=== PATIENT | male | born 1950 | race African-American/Black ===

== ENCOUNTER 2019-11-11 14:24 | Observation (INO) ==
[2019-11-11 14:57] LABS: Basophils # 0.1 10*3/uL (0.0-0.2); Basophils % 0.6 % (0.0-0.8); Eosinophils # 0.2 10*3/uL (0.0-0.87); Hematocrit 52.8 VOL% (42.0-52.0); Hemoglobin 17.1 GM/DL (14.0-18.0); Immature Granulocytes % 0.5 %; Immature Granulocytes Absolute 0.05 #; Lymphocytes # 0.9 10*3/uL (1.4-4.0); Lymphocytes % 8.7 % (21.2-54.2); Mean Corpuscular HGB Conc 32.4 GM/DL (32-36); Mean Corpuscular Volume 90.1 FL (87-102); Mean Platelet Volume 10.5 FL (9.6-12.0); Neutrophils % 81.2 % (38.7-73.9); Platelet Count 229 T/CUMM (130-400); Red Blood Count 5.86 MC/CUMM (3.8-5.5); Red Cell Distribution Width 13.2 % (9.3-17.3); White Blood Count 10.6 T/CUMM (4-12)
[2019-11-11 15:05] LABS: PT Patient Result 10.7 SECS (9.8-11.9)
[2019-11-11 15:18] LABS: Alanine Aminotransferase 17 U/L (16-61); Albumin 3.8 G/DL (3.4-5.0); Alkaline Phosphatase 87 U/L (45-117); Aspartate Amino Transferase 11 U/L (0-37); Bilirubin,Total < 0.39 MG/DL (0.2-1.0); Blood Urea Nitrogen 17 MG/DL (7-18); Calcium 8.9 MG/DL (8.5-10.1); Estimated Glom Filtration Rate 80 ML/MIN; Glucose 107 MG/DL (74-106); Osmolality,Calculated 276.7 MOS/KG (273-304); Total Protein 7.6 G/DL (6.4-8.3)
[2019-11-11] MEDS ORDERED: cefTRIAXone 1,000 MG in SODIUM CHLORIDE 0.9% 100 ML IV STA (15:23)
[2019-11-11] MEDS ORDERED: AZITHROMYCIN INJ 500 MG in SODIUM CHLORIDE 0.9% 250 ML IV STA (15:23)
[2019-11-11] MEDS ORDERED: DEXTROSE 50% 25 GM/50 ML VIAL IV PRN (16:19)
[2019-11-11] MEDS ORDERED: ACETAMINOPHEN 325 MG TABLET PO PRN (16:19)
[2019-11-11] MEDS ORDERED: ONDANSETRON 4 MG/2 ML VIAL IV PRN (16:19)
[2019-11-11] MEDS ORDERED: GLUCAGON 1 MG VIAL IM PRN (16:19)
[2019-11-11] MEDS ORDERED: DOCUSATE SODIUM 100 MG CAPSULE PO PRN (16:19)
[2019-11-11] MEDS ORDERED: hydrALAZINE 20 MG/1 ML VIAL IV PRN (16:19)
[2019-11-11] MEDS ORDERED: AZITHROMYCIN INJ 250 MG in SODIUM CHLORIDE 0.9% 250 ML IV SCH (16:30)
[2019-11-11] MEDS ORDERED: RACEPINEPHRINE 0.5 ML NEB RESP TX ONE (16:43)
[2019-11-11 16:45] LABS: Risk Ratio 4.03; VLDL CHOLESTEROL 19.2 MG/DL
[2019-11-11 16:52] LABS: Thyroid Stimulating Hormone 1.57 uIU/ml (0.358-3.74)
[2019-11-11] MEDS: methylPREDNISolone SOD SUC 40 MG/1 ML VIAL IV SCH (16:54)
[2019-11-11 16:59] LABS: Allen Test Positive
[2019-11-11 17:00] LABS: ABG Base Excess -1.1 MMOL/L (-2.5-2.5); ABG Oxygen Saturation 77.7 % (95-100); ABG PCO2 43.4 MM HG (35-48); ABG PH 7.361 (7.35-7.45); ABG PO2 45.4 MM HG (80-95)
[2019-11-11] MEDS ORDERED: ENOXAPARIN 40 MG/0.4 ML SYRINGE SUBCUT SCH (17:00)
[2019-11-12] MEDS: methylPREDNISolone SOD SUC 40 MG/1 ML VIAL IV SCH (00:19)
[2019-11-12 04:18] LABS: Hematocrit 50.4 VOL% (42.0-52.0); Hemoglobin 16.3 GM/DL (14.0-18.0); Immature Granulocytes % 0.5 %; Immature Granulocytes Absolute 0.03 #; Lymphocytes # 0.4 10*3/uL (1.4-4.0); Lymphocytes % 6.5 % (21.2-54.2); Mean Corpuscular HGB Conc 32.3 GM/DL (32-36); Mean Corpuscular Volume 89.2 FL (87-102); Mean Platelet Volume 11.1 FL (9.6-12.0); Monocytes % 1.6 % (1.7-12.7); Neutrophils % 91.4 % (38.7-73.9); Platelet Count 226 T/CUMM (130-400); Red Blood Count 5.65 MC/CUMM (3.8-5.5); Red Cell Distribution Width 13.2 % (9.3-17.3); White Blood Count 6.3 T/CUMM (4-12)
[2019-11-12 05:15] LABS: Eosinophils 1 % (0-10); Hypochromasia 1+; Lymphocytes 4 % (20-55); Segmented Neutrophils 94 % (50-85); Total Cells Counted 100
[2019-11-12 05:16] LABS: Microcytosis Slight; Platelet Estimate Normal
[2019-11-12] MEDS ORDERED: FUROSEMIDE 40 MG/4 ML VIAL IV ONE (09:00)
[2019-11-12] MEDS ORDERED: PANTOPRAZOLE 40 MG TABLET PO SCH (09:00)
[2019-11-12] MEDS ORDERED: cefTRIAXone 1,000 MG in SYRINGE 1 EACH IV SCH (09:00)
[2019-11-12 12:05] VITALS: BP 126/72
[2019-11-12] MEDS ORDERED: AZITHROMYCIN INJ 250 MG in SODIUM CHLORIDE 0.9% 250 ML IV SCH (17:00)
[2019-11-13] MEDS ORDERED: predniSONE 20 MG TABLET PO SCH (09:00)
== END 2019-11-12 12:26 | disposition home or self-care (01) ==
LOC: N.ED 14:24 → N.EDINP 16:03 → INTOOBSV 16:03 → N.2W 16:43
PROVIDERS: ADMIT Family Medicine; ATTEND Family Medicine

== ENCOUNTER 2020-07-05 12:55 | Inpatient (IN) ==
[2020-07-05 15:08] LABS: Basophils % 0.2 % (0.0-0.8); Hematocrit 49.9 VOL% (42.0-52.0); Hemoglobin 16.4 GM/DL (14.0-18.0); Immature Granulocytes % 0.3 %; Immature Granulocytes Absolute 0.02 #; Lymphocytes # 0.5 10*3/uL (1.4-4.0); Lymphocytes % 8.3 % (21.2-54.2); Mean Corpuscular HGB Conc 32.9 GM/DL (32-36); Mean Corpuscular Volume 88.3 FL (87-102); Mean Platelet Volume 11.3 FL (9.6-12.0); Monocytes % 5.8 % (1.7-12.7); Neutrophils % 85.4 % (38.7-73.9); Platelet Count 189 T/CUMM (130-400); Red Blood Count 5.65 MC/CUMM (3.8-5.5); Red Cell Distribution Width 13.3 % (9.3-17.3); White Blood Count 6.1 T/CUMM (4-12)
[2020-07-05 15:17] LABS: PT Patient Result 10.8 SECS (9.8-11.9); Partial Thromboplastin Time 34.5 SECS (23.9-33.8)
[2020-07-05 15:20] LABS: Alanine Aminotransferase 22 U/L (16-61); Albumin 3.5 G/DL (3.4-5.0); Alkaline Phosphatase 75 U/L (45-117); Aspartate Amino Transferase 21 U/L (0-37); Blood Urea Nitrogen 18 MG/DL (7-18); Calcium 8.4 MG/DL (8.5-10.1); Estimated Glom Filtration Rate 67 ML/MIN; Glucose 109 MG/DL (74-106); Osmolality,Calculated 270.2 MOS/KG (273-304); Total Protein 7.7 G/DL (6.4-8.3); Troponin I < 0.015 NG/ML (0.00-0.045)
[2020-07-05 15:32] LABS: Band Neutrophils 7 % (0-10); Lymphocytes 7 % (20-55); Segmented Neutrophils 80 % (50-85); Total Cells Counted 100
[2020-07-05 15:33] LABS: Atypical Lymphocytes Few; Platelet Estimate Adequate
[2020-07-05] MEDS ORDERED: GLUCAGON 1 MG VIAL IM PRN (17:05)
[2020-07-05] MEDS ORDERED: ONDANSETRON 4 MG/2 ML VIAL IV PRN (17:05)
[2020-07-05] MEDS ORDERED: DEXTROSE 50% 25 GM/50 ML VIAL IV PRN (17:05)
[2020-07-05] MEDS: cefTRIAXone 1,000 MG in SYRINGE 1 EACH IV SCH (19:10)
[2020-07-05] MEDS: DEXAMETHASONE 4 MG/1 ML VIAL IV SCH (19:25)
[2020-07-05] MEDS: SODIUM CHLORIDE 0.9% 1,000 ML IV SCH (19:26)
[2020-07-05] MEDS: ENOXAPARIN 40 MG/0.4 ML SYRINGE SUBCUT SCH (20:10)
[2020-07-05] MEDS: MELATONIN 3 MG TABLET PO PRN (23:40)
[2020-07-06 06:07] LABS: Basophils % 0.3 % (0.0-0.8); Hemoglobin 15.7 GM/DL (14.0-18.0); Immature Granulocytes % 0.3 %; Immature Granulocytes Absolute 0.01 #; Lymphocytes # 0.3 10*3/uL (1.4-4.0); Lymphocytes % 10.5 % (21.2-54.2); Mean Corpuscular HGB Conc 33.4 GM/DL (32-36); Mean Corpuscular Volume 87.9 FL (87-102); Mean Platelet Volume 10.9 FL (9.6-12.0); Monocytes % 4.3 % (1.7-12.7); Neutrophils % 84.6 % (38.7-73.9); Platelet Count 167 T/CUMM (130-400); Red Blood Count 5.35 MC/CUMM (3.8-5.5); Red Cell Distribution Width 13.2 % (9.3-17.3); White Blood Count 3.1 T/CUMM (4-12)
[2020-07-06 06:26] LABS: Ferritin 263.7 ng/ml (26-388)
[2020-07-06 06:40] LABS: Calcium 8.3 MG/DL (8.5-10.1); Osmolality,Calculated 273.1 MOS/KG (273-304)
[2020-07-06] MEDS: AZITHROMYCIN 250 MG TABLET PO SCH (08:46)
[2020-07-06] MEDS: ZINC SULFATE 220 MG CAPSULE PO SCH (08:46)
[2020-07-06] MEDS: FAMOTIDINE 20 MG TABLET PO SCH ×2 (08:46→21:16)
[2020-07-06] MEDS ORDERED: FAMOTIDINE 20 MG TABLET PO SCH (09:00)
[2020-07-06] MEDS: SODIUM CHLORIDE 0.9% 1,000 ML IV SCH ×2 (09:18→12:35)
[2020-07-06] MEDS ORDERED: REMDESIVIR 200 MG in SODIUM CHLORIDE 0.9% 210 ML IV ONE (10:00)
[2020-07-06] MEDS: DEXAMETHASONE 4 MG/1 ML VIAL IV SCH (17:03)
[2020-07-06] MEDS: cefTRIAXone 1,000 MG in SYRINGE 1 EACH IV SCH (17:03)
[2020-07-06] MEDS: ENOXAPARIN 40 MG/0.4 ML SYRINGE SUBCUT SCH (21:16)
[2020-07-06] MEDS: guaiFENesin/CODEINE 5 ML LIQUID PO PRN (21:16)
[2020-07-06] MEDS: MELATONIN 3 MG TABLET PO PRN (21:16)
[2020-07-07 06:03] LABS: Basophils % 0.2 % (0.0-0.8); Hematocrit 48.6 VOL% (42.0-52.0); Hemoglobin 16.1 GM/DL (14.0-18.0); Immature Granulocytes % 0.4 %; Immature Granulocytes Absolute 0.02 #; Lymphocytes # 0.4 10*3/uL (1.4-4.0); Lymphocytes % 7.1 % (21.2-54.2); Mean Corpuscular HGB Conc 33.1 GM/DL (32-36); Mean Corpuscular Volume 88.5 FL (87-102); Mean Platelet Volume 11.3 FL (9.6-12.0); Monocytes % 6.5 % (1.7-12.7); Neutrophils % 85.8 % (38.7-73.9); Platelet Count 193 T/CUMM (130-400); Red Blood Count 5.49 MC/CUMM (3.8-5.5); Red Cell Distribution Width 13.4 % (9.3-17.3); White Blood Count 5.1 T/CUMM (4-12)
[2020-07-07 06:31] LABS: Albumin 2.9 G/DL (3.4-5.0); Bilirubin,Total 0.4 MG/DL (0.2-1.0); Calcium 8.4 MG/DL (8.5-10.1); Total Protein 6.8 G/DL (6.4-8.3)
[2020-07-07 06:37] LABS: Ferritin 311.7 ng/ml (26-388)
[2020-07-07 06:38] LABS: Band Neutrophils 4 % (0-10); Hypochromasia 1+; Lymphocytes 3 % (20-55); Microcytosis 1+; Segmented Neutrophils 83 % (50-85); Total Cells Counted 100
[2020-07-07 06:39] LABS: Ovalocytes Slight; Platelet Estimate Adequate
[2020-07-07] MEDS: AZITHROMYCIN 250 MG TABLET PO SCH (08:10)
[2020-07-07] MEDS: FAMOTIDINE 20 MG TABLET PO SCH ×2 (08:10→21:08)
[2020-07-07] MEDS: ZINC SULFATE 220 MG CAPSULE PO SCH (08:10)
[2020-07-07] MEDS: guaiFENesin/CODEINE 5 ML LIQUID PO PRN (08:11)
[2020-07-07] MEDS: SODIUM CHLORIDE 0.9% 1,000 ML IV SCH (08:43)
[2020-07-07] MEDS ORDERED: REMDESIVIR 100 MG in SODIUM CHLORIDE 0.9% 230 ML IV SCH (09:00)
[2020-07-07] MEDS ORDERED: FUROSEMIDE 40 MG/4 ML VIAL IV ONE (12:05)
[2020-07-07] MEDS ORDERED: SODIUM CHLORIDE 0.9% 1,000 ML IV PRN (14:07)
[2020-07-07] MEDS: DEXAMETHASONE 4 MG/1 ML VIAL IV SCH (17:43)
[2020-07-07] MEDS: cefTRIAXone 1,000 MG in SYRINGE 1 EACH IV SCH (17:43)
[2020-07-07] MEDS: ENOXAPARIN 40 MG/0.4 ML SYRINGE SUBCUT SCH (21:08)
[2020-07-07] MEDS: BUDESONIDE/FORMOTEROL 160-4.5 INHALER 6 GM INH SCH ×2 (21:08→22:28)
[2020-07-08 06:32] LABS: Hematocrit 47.4 VOL% (42.0-52.0); Hemoglobin 15.7 GM/DL (14.0-18.0); Immature Granulocytes % 0.4 %; Immature Granulocytes Absolute 0.02 #; Lymphocytes # 0.5 10*3/uL (1.4-4.0); Lymphocytes % 9.3 % (21.2-54.2); Mean Corpuscular HGB Conc 33.1 GM/DL (32-36); Mean Corpuscular Volume 88.9 FL (87-102); Mean Platelet Volume 11.4 FL (9.6-12.0); Monocytes % 7.3 % (1.7-12.7); Platelet Count 214 T/CUMM (130-400); Red Blood Count 5.33 MC/CUMM (3.8-5.5); Red Cell Distribution Width 13.3 % (9.3-17.3); White Blood Count 5.5 T/CUMM (4-12)
[2020-07-08 07:00] LABS: Albumin 3.1 G/DL (3.4-5.0); Band Neutrophils 2 % (0-10); Bilirubin,Total 0.6 MG/DL (0.2-1.0); Calcium 8.7 MG/DL (8.5-10.1); Lymphocytes 4 % (20-55); Nucleated Red Blood Cells 1 (0-5); Osmolality,Calculated 274.1 MOS/KG (273-304); Segmented Neutrophils 89 % (50-85); Total Cells Counted 100; Total Protein 6.7 G/DL (6.4-8.3)
[2020-07-08 07:02] LABS: Platelet Estimate Adequate
[2020-07-08 07:04] LABS: Ferritin 375.4 ng/ml (26-388); Hypochromasia Slight; Microcytosis Slight
[2020-07-08] MEDS: FAMOTIDINE 20 MG TABLET PO SCH ×2 (08:15→20:33)
[2020-07-08] MEDS: CHOLECALCIFEROL 1,000 UNIT TABLET PO SCH (08:15)
[2020-07-08] MEDS: MULTIVITAMIN (CENTRUM) TABLET PO SCH (08:15)
[2020-07-08] MEDS: ZINC SULFATE 220 MG CAPSULE PO SCH (08:15)
[2020-07-08] MEDS: ASPIRIN EC 81 MG TABLET PO SCH (08:15)
[2020-07-08] MEDS: BUDESONIDE/FORMOTEROL 160-4.5 INHALER 6 GM INH SCH ×2 (08:15→20:34)
[2020-07-08] MEDS: ROSUVASTATIN 10 MG TABLET PO SCH (08:15)
[2020-07-08] MEDS: AZITHROMYCIN 250 MG TABLET PO SCH (08:15)
[2020-07-08] MEDS: guaiFENesin/DM ER 600-30 MG TABLET PO SCH ×2 (11:04→20:34)
[2020-07-08] MEDS: guaiFENesin/CODEINE 5 ML LIQUID PO PRN (11:04)
[2020-07-08] MEDS: REMDESIVIR 100 MG in SODIUM CHLORIDE 0.9% 230 ML IV SCH (12:13)
[2020-07-08] MEDS ORDERED: FUROSEMIDE 40 MG/4 ML VIAL IV ONE (16:49)
[2020-07-08] MEDS: DEXAMETHASONE 4 MG/1 ML VIAL IV SCH (16:50)
[2020-07-08] MEDS: cefTRIAXone 1,000 MG in SYRINGE 1 EACH IV SCH (16:50)
[2020-07-08] MEDS: ENOXAPARIN 40 MG/0.4 ML SYRINGE SUBCUT SCH (20:33)
[2020-07-08] MEDS: MELATONIN 3 MG TABLET PO PRN (20:34)
[2020-07-09 06:13] LABS: Basophils % 0.1 % (0.0-0.8); Hematocrit 47.5 VOL% (42.0-52.0); Hemoglobin 16.1 GM/DL (14.0-18.0); Immature Granulocytes % 0.3 %; Immature Granulocytes Absolute 0.02 #; Lymphocytes # 0.5 10*3/uL (1.4-4.0); Lymphocytes % 7.1 % (21.2-54.2); Mean Corpuscular HGB Conc 33.9 GM/DL (32-36); Mean Corpuscular Volume 86.7 FL (87-102); Mean Platelet Volume 11.1 FL (9.6-12.0); Monocytes % 8.2 % (1.7-12.7); Neutrophils % 84.3 % (38.7-73.9); Platelet Count 243 T/CUMM (130-400); Red Blood Count 5.48 MC/CUMM (3.8-5.5); Red Cell Distribution Width 13.2 % (9.3-17.3); White Blood Count 7.5 T/CUMM (4-12)
[2020-07-09 06:33] LABS: Albumin 2.9 G/DL (3.4-5.0); Bilirubin,Total 1.4 MG/DL (0.2-1.0); Calcium 8.9 MG/DL (8.5-10.1); Osmolality,Calculated 275.1 MOS/KG (273-304); Total Protein 7.5 G/DL (6.4-8.3)
[2020-07-09 06:40] LABS: Band Neutrophils 1 % (0-10); Hypochromasia 1+; Lymphocytes 3 % (20-55); Microcytosis 1+; Platelet Estimate Adequate; Segmented Neutrophils 88 % (50-85); Total Cells Counted 100
[2020-07-09] MEDS: ROSUVASTATIN 10 MG TABLET PO SCH (08:00)
[2020-07-09] MEDS: guaiFENesin/DM ER 600-30 MG TABLET PO SCH ×2 (08:00→20:07)
[2020-07-09] MEDS: MULTIVITAMIN (CENTRUM) TABLET PO SCH (08:00)
[2020-07-09] MEDS: ASPIRIN EC 81 MG TABLET PO SCH (08:00)
[2020-07-09] MEDS: FAMOTIDINE 20 MG TABLET PO SCH ×2 (08:00→20:05)
[2020-07-09] MEDS: BUDESONIDE/FORMOTEROL 160-4.5 INHALER 6 GM INH SCH ×2 (08:00→20:06)
[2020-07-09] MEDS: CHOLECALCIFEROL 1,000 UNIT TABLET PO SCH (08:00)
[2020-07-09] MEDS: ZINC SULFATE 220 MG CAPSULE PO SCH (08:01)
[2020-07-09] MEDS: AZITHROMYCIN 250 MG TABLET PO SCH (08:01)
[2020-07-09] MEDS: REMDESIVIR 100 MG in SODIUM CHLORIDE 0.9% 230 ML IV SCH (10:00)
[2020-07-09] MEDS: DEXAMETHASONE 4 MG/1 ML VIAL IV SCH (17:07)
[2020-07-09] MEDS: cefTRIAXone 1,000 MG in SYRINGE 1 EACH IV SCH (17:07)
[2020-07-09] MEDS: MELATONIN 3 MG TABLET PO PRN (20:05)
[2020-07-09] MEDS: ENOXAPARIN 40 MG/0.4 ML SYRINGE SUBCUT SCH (20:05)
[2020-07-10 04:54] LABS: Basophils % 0.4 % (0.0-0.8); Hematocrit 49.2 VOL% (42.0-52.0); Hemoglobin 16.2 GM/DL (14.0-18.0); Immature Granulocytes % 0.3 %; Immature Granulocytes Absolute 0.02 #; Lymphocytes # 0.5 10*3/uL (1.4-4.0); Lymphocytes % 7.3 % (21.2-54.2); Mean Corpuscular HGB Conc 32.9 GM/DL (32-36); Mean Corpuscular Volume 88.2 FL (87-102); Mean Platelet Volume 11.2 FL (9.6-12.0); Monocytes % 6.5 % (1.7-12.7); Neutrophils % 85.5 % (38.7-73.9); Platelet Count 253 T/CUMM (130-400); Red Blood Count 5.58 MC/CUMM (3.8-5.5); Red Cell Distribution Width 13.1 % (9.3-17.3); White Blood Count 7.4 T/CUMM (4-12)
[2020-07-10 05:15] LABS: Albumin 2.9 G/DL (3.4-5.0); Bilirubin,Total 0.7 MG/DL (0.2-1.0); Total Protein 7.2 G/DL (6.4-8.3)
[2020-07-10 05:16] LABS: Hypochromasia 1+; Lymphocytes 9 % (20-55); Segmented Neutrophils 85 % (50-85); Total Cells Counted 100
[2020-07-10 05:17] LABS: Microcytosis 1+; Platelet Estimate Normal
[2020-07-10] MEDS: MULTIVITAMIN (CENTRUM) TABLET PO SCH (09:40)
[2020-07-10] MEDS: CHOLECALCIFEROL 1,000 UNIT TABLET PO SCH (09:40)
[2020-07-10] MEDS: ASPIRIN EC 81 MG TABLET PO SCH (09:40)
[2020-07-10] MEDS: guaiFENesin/DM ER 600-30 MG TABLET PO SCH ×2 (09:40→20:37)
[2020-07-10] MEDS: ROSUVASTATIN 10 MG TABLET PO SCH (09:40)
[2020-07-10] MEDS: AZITHROMYCIN 250 MG TABLET PO SCH (09:40)
[2020-07-10] MEDS: ZINC SULFATE 220 MG CAPSULE PO SCH (09:40)
[2020-07-10] MEDS: FAMOTIDINE 20 MG TABLET PO SCH ×2 (09:41→20:37)
[2020-07-10] MEDS: BUDESONIDE/FORMOTEROL 160-4.5 INHALER 6 GM INH SCH ×2 (09:41→20:38)
[2020-07-10] MEDS: REMDESIVIR 100 MG in SODIUM CHLORIDE 0.9% 230 ML IV SCH (10:02)
[2020-07-10] MEDS: DEXAMETHASONE 4 MG/1 ML VIAL IV SCH (17:05)
[2020-07-10] MEDS: cefTRIAXone 1,000 MG in SYRINGE 1 EACH IV SCH (17:09)
[2020-07-10] MEDS: ENOXAPARIN 40 MG/0.4 ML SYRINGE SUBCUT SCH (20:37)
[2020-07-10] MEDS: MELATONIN 3 MG TABLET PO PRN (20:37)
[2020-07-11 05:56] LABS: Basophils % 0.3 % (0.0-0.8); Hematocrit 50.4 VOL% (42.0-52.0); Hemoglobin 16.8 GM/DL (14.0-18.0); Immature Granulocytes % 0.4 %; Immature Granulocytes Absolute 0.03 #; Lymphocytes # 0.5 10*3/uL (1.4-4.0); Lymphocytes % 5.9 % (21.2-54.2); Mean Corpuscular HGB Conc 33.3 GM/DL (32-36); Mean Corpuscular Volume 88.4 FL (87-102); Mean Platelet Volume 11.1 FL (9.6-12.0); Monocytes % 6.3 % (1.7-12.7); Neutrophils % 87.1 % (38.7-73.9); Platelet Count 270 T/CUMM (130-400); Red Cell Distribution Width 13.1 % (9.3-17.3); White Blood Count 7.8 T/CUMM (4-12)
[2020-07-11 06:22] LABS: Albumin 2.8 G/DL (3.4-5.0); Bilirubin,Total 1.2 MG/DL (0.2-1.0); Calcium 9.1 MG/DL (8.5-10.1); Ferritin 471.7 ng/ml (26-388); Osmolality,Calculated 274.2 MOS/KG (273-304); Total Protein 7.5 G/DL (6.4-8.3)
[2020-07-11 07:54] LABS: Hypochromasia 1+; Lymphocytes 3 % (20-55); Segmented Neutrophils 91 % (50-85); Total Cells Counted 100
[2020-07-11 07:55] LABS: Microcytosis 1+; Platelet Estimate Normal
[2020-07-11] MEDS: guaiFENesin/CODEINE 5 ML LIQUID PO PRN ×2 (09:18→19:58)
[2020-07-11] MEDS: CHOLECALCIFEROL 1,000 UNIT TABLET PO SCH (09:19)
[2020-07-11] MEDS: ROSUVASTATIN 10 MG TABLET PO SCH (09:19)
[2020-07-11] MEDS: ZINC SULFATE 220 MG CAPSULE PO SCH (09:20)
[2020-07-11] MEDS: guaiFENesin/DM ER 600-30 MG TABLET PO SCH ×2 (09:20→19:59)
[2020-07-11] MEDS: ASPIRIN EC 81 MG TABLET PO SCH (09:20)
[2020-07-11] MEDS: MULTIVITAMIN (CENTRUM) TABLET PO SCH (09:20)
[2020-07-11] MEDS: FAMOTIDINE 20 MG TABLET PO SCH ×2 (09:20→19:59)
[2020-07-11] MEDS: BUDESONIDE/FORMOTEROL 160-4.5 INHALER 6 GM INH SCH ×2 (09:21→19:59)
[2020-07-11] MEDS: DEXAMETHASONE 4 MG/1 ML VIAL IV SCH (17:21)
[2020-07-11] MEDS: cefTRIAXone 1,000 MG in SYRINGE 1 EACH IV SCH (17:25)
[2020-07-11] MEDS: ENOXAPARIN 40 MG/0.4 ML SYRINGE SUBCUT SCH (19:59)
[2020-07-11] MEDS: MELATONIN 3 MG TABLET PO PRN (19:59)
[2020-07-11] MEDS: ACETAMINOPHEN 325 MG TABLET PO PRN (19:59)
[2020-07-12 07:07] LABS: Ferritin 446.1 ng/ml (26-388)
[2020-07-12] MEDS: APIXABAN 5 MG TABLET PO SCH ×2 (09:10→20:14)
[2020-07-12] MEDS: MULTIVITAMIN (CENTRUM) TABLET PO SCH (09:10)
[2020-07-12] MEDS: guaiFENesin/DM ER 600-30 MG TABLET PO SCH ×2 (09:10→20:14)
[2020-07-12] MEDS: ASPIRIN EC 81 MG TABLET PO SCH (09:10)
[2020-07-12] MEDS: CHOLECALCIFEROL 1,000 UNIT TABLET PO SCH (09:10)
[2020-07-12] MEDS: ROSUVASTATIN 10 MG TABLET PO SCH (09:10)
[2020-07-12] MEDS: FAMOTIDINE 20 MG TABLET PO SCH ×2 (09:10→20:14)
[2020-07-12] MEDS: guaiFENesin/CODEINE 5 ML LIQUID PO PRN ×2 (09:10→19:30)
[2020-07-12] MEDS: BUDESONIDE/FORMOTEROL 160-4.5 INHALER 6 GM INH SCH ×2 (09:10→20:14)
[2020-07-12] MEDS: ZINC SULFATE 220 MG CAPSULE PO SCH (09:10)
[2020-07-12] MEDS: DEXAMETHASONE 4 MG/1 ML VIAL IV SCH (18:18)
[2020-07-12] MEDS: cefTRIAXone 1,000 MG in SYRINGE 1 EACH IV SCH (18:21)
[2020-07-12] MEDS: MELATONIN 3 MG TABLET PO PRN (19:29)
[2020-07-12] MEDS: ACETAMINOPHEN 325 MG TABLET PO PRN (19:30)
[2020-07-13 06:03] LABS: Ferritin 412.4 ng/ml (26-388)
[2020-07-13] MEDS: BUDESONIDE/FORMOTEROL 160-4.5 INHALER 6 GM INH SCH (10:15)
[2020-07-13] MEDS: MULTIVITAMIN (CENTRUM) TABLET PO SCH (10:15)
[2020-07-13] MEDS: CHOLECALCIFEROL 1,000 UNIT TABLET PO SCH (10:15)
[2020-07-13] MEDS: ZINC SULFATE 220 MG CAPSULE PO SCH (10:15)
[2020-07-13] MEDS: FAMOTIDINE 20 MG TABLET PO SCH (10:15)
[2020-07-13] MEDS: guaiFENesin/DM ER 600-30 MG TABLET PO SCH (10:15)
[2020-07-13] MEDS: ASPIRIN EC 81 MG TABLET PO SCH (10:15)
[2020-07-13] MEDS: ROSUVASTATIN 10 MG TABLET PO SCH (10:15)
[2020-07-13] MEDS: APIXABAN 5 MG TABLET PO SCH (10:15)
[2020-07-13 11:17] VITALS: BP 134/67
[2020-07-19] MEDS ORDERED: APIXABAN 5 MG TABLET PO SCH (09:00)
== END 2020-07-13 12:42 | disposition home health service (06) | DRG 177 ==
LOC: N.ED 12:55 → SUATTDRO 17:06 → N.EDINP 17:06 → N.2E 18:51
PROVIDERS: ADMIT Family Medicine; ATTEND Family Medicine

== ENCOUNTER 2020-07-19 13:14 | Inpatient (IN) ==
[2020-07-19 14:53] LABS: Basophils % 0.1 % (0.0-0.8); Hematocrit 49.9 VOL% (42.0-52.0); Hemoglobin 16.3 GM/DL (14.0-18.0); Immature Granulocytes % 0.8 %; Immature Granulocytes Absolute 0.17 #; Lymphocytes # 0.4 10*3/uL (1.4-4.0); Lymphocytes % 2.1 % (21.2-54.2); Mean Corpuscular HGB Conc 32.7 GM/DL (32-36); Mean Corpuscular Volume 88.8 FL (87-102); Mean Platelet Volume 10.6 FL (9.6-12.0); Monocytes % 2.7 % (1.7-12.7); Neutrophils % 94.3 % (38.7-73.9); Platelet Count 261 T/CUMM (130-400); Red Blood Count 5.62 MC/CUMM (3.8-5.5); Red Cell Distribution Width 13.3 % (9.3-17.3)
[2020-07-19 15:18] LABS: Albumin 2.8 G/DL (3.4-5.0); Bilirubin,Total 0.4 MG/DL (0.2-1.0); Calcium 9.7 MG/DL (8.5-10.1); Osmolality,Calculated 282.7 MOS/KG (273-304); Total Protein 7.4 G/DL (6.4-8.3)
[2020-07-19 15:27] LABS: Lymphocytes 3 % (20-55); Segmented Neutrophils 94 % (50-85); Total Cells Counted 100
[2020-07-19 15:28] LABS: Platelet Estimate Normal
[2020-07-19 17:13] LABS: Ferritin 426.7 ng/ml (26-388)
[2020-07-19] MEDS ORDERED: DEXTROSE 50% 25 GM/50 ML VIAL IV PRN (17:26)
[2020-07-19] MEDS ORDERED: ONDANSETRON 4 MG/2 ML VIAL IV PRN (17:26)
[2020-07-19] MEDS ORDERED: ACETAMINOPHEN 325 MG TABLET PO PRN (17:26)
[2020-07-19] MEDS ORDERED: GLUCAGON 1 MG VIAL IM PRN (17:26)
[2020-07-19] MEDS ORDERED: MELATONIN 3 MG TABLET PO PRN (17:29)
[2020-07-19] MEDS ORDERED: guaiFENesin/CODEINE 5 ML LIQUID PO PRN (17:29)
[2020-07-19] MEDS ORDERED: ASPIRIN CHEW 81 MG TABLET PO ONE (17:38)
[2020-07-19] MEDS ORDERED: ALBUTEROL/IPRATROPIUM 3 ML NEB RESP TX PRN (17:59)
[2020-07-19 18:09] LABS: Risk Ratio 2.74; Thyroid Stimulating Hormone 0.283 uIU/ml (0.358-3.74); VLDL CHOLESTEROL 13.8 MG/DL
[2020-07-19] MEDS ORDERED: CEFEPIME 1,000 MG VIAL ONE (18:24)
[2020-07-19] MEDS ORDERED: ENOXAPARIN 80 MG/0.8 ML SYRINGE SUBCUT ONE (18:24)
[2020-07-19] MEDS ORDERED: SODIUM CHLORIDE 0.9% 100 ML IV ONE (18:25)
[2020-07-19] MEDS: carvediloL 3.125 MG TABLET PO SCH (18:29)
[2020-07-19] MEDS: CEFEPIME 1,000 MG in SODIUM CHLORIDE 0.9% 100 ML IV SCH ×2 (18:30→23:15)
[2020-07-19 18:32] LABS: Bilirubin,Urine Negative (Negative); Blood, Urine Negative (Negative); Glucose,Urine (UA) Negative (Negative); Ketones,Urine Negative (Negative); Mucus,Urine Occasional /LPF (Occasional); Nitrite,Urine Negative (Negative); Protein,Urine 100 MG/DL; Urine Appearance CLEAR (Clear); Urine Color Yellow (Yellow); Urine Specific Gravity 1.021 (1.001-1.035); Urine Urobilinogen < 2.0 EU/DL (0.2-1.0)
[2020-07-19] MEDS: ENOXAPARIN 80 MG/0.8 ML SYRINGE SUBCUT SCH (18:32)
[2020-07-19] MEDS ORDERED: AZITHROMYCIN INJ 500 MG in SODIUM CHLORIDE 0.9% 250 ML IV SCH (20:00)
[2020-07-19] MEDS: FAMOTIDINE 20 MG TABLET PO SCH (20:12)
[2020-07-19] MEDS: ASCORBIC ACID 500 MG TABLET PO SCH (20:12)
[2020-07-19] MEDS: ATORVASTATIN 40 MG TABLET PO SCH (20:12)
[2020-07-19] MEDS ORDERED: APIXABAN 5 MG TABLET PO SCH (21:00)
[2020-07-19] MEDS: lisinopriL 2.5 MG TABLET PO SCH (21:08)
[2020-07-20] MEDS: ENOXAPARIN 80 MG/0.8 ML SYRINGE SUBCUT SCH (05:10)
[2020-07-20] MEDS: CEFEPIME 1,000 MG in SODIUM CHLORIDE 0.9% 100 ML IV SCH ×3 (05:10→18:20)
[2020-07-20 05:46] LABS: Basophils % 0.1 % (0.0-0.8); Eosinophils # 0.1 10*3/uL (0.0-0.87); Eosinophils % 0.4 % (0.00-10.9); Hematocrit 45.7 VOL% (42.0-52.0); Hemoglobin 14.8 GM/DL (14.0-18.0); Immature Granulocytes % 0.7 %; Immature Granulocytes Absolute 0.12 #; Lymphocytes # 0.8 10*3/uL (1.4-4.0); Lymphocytes % 4.7 % (21.2-54.2); Mean Corpuscular HGB Conc 32.4 GM/DL (32-36); Mean Corpuscular Volume 89.3 FL (87-102); Monocytes % 6.4 % (1.7-12.7); Neutrophils % 87.7 % (38.7-73.9); Platelet Count 244 T/CUMM (130-400); Red Blood Count 5.12 MC/CUMM (3.8-5.5); Red Cell Distribution Width 13.2 % (9.3-17.3); White Blood Count 16.5 T/CUMM (4-12)
[2020-07-20 06:05] LABS: Osmolality,Calculated 286.4 MOS/KG (273-304)
[2020-07-20 06:38] LABS: Hypochromasia 1+; Lymphocytes 2 % (20-55); Microcytosis 1+; Myelocytes 1 %; Segmented Neutrophils 94 % (50-85); Total Cells Counted 100
[2020-07-20 06:39] LABS: Platelet Estimate Normal
[2020-07-20 08:45] LABS: ABG Base Excess 4.6 MMOL/L (-2.5-2.5); ABG HCO3 28.4 MMOL/L (20-26); ABG Oxygen Saturation 96.5 % (95-100); ABG PCO2 44.4 MM HG (35-48); ABG PH 7.433 (7.35-7.45); ABG PO2 87.3 MM HG (80-95); ABG TCO2 24.8 MMOL/L (23-27)
[2020-07-20] MEDS ORDERED: DEXAMETHASONE 6 MG PO SCH (09:00)
[2020-07-20] MEDS ORDERED: PANTOPRAZOLE 40 MG TABLET PO SCH (09:00)
[2020-07-20] MEDS: FAMOTIDINE 20 MG TABLET PO SCH ×2 (09:05→21:48)
[2020-07-20] MEDS: MULTIVITAMIN (CENTRUM) TABLET PO SCH (09:05)
[2020-07-20] MEDS: ZINC SULFATE 220 MG CAPSULE PO SCH (09:05)
[2020-07-20] MEDS: lisinopriL 2.5 MG TABLET PO SCH (09:05)
[2020-07-20] MEDS: ASCORBIC ACID 500 MG TABLET PO SCH ×2 (09:05→21:48)
[2020-07-20] MEDS: carvediloL 3.125 MG TABLET PO SCH ×2 (09:05→21:48)
[2020-07-20] MEDS ORDERED: ALBUTEROL/IPRATROPIUM 3 ML NEB RESP TX ONE (11:25)
[2020-07-20] MEDS: methylPREDNISolone SOD SUC 40 MG/1 ML VIAL IV SCH ×3 (11:58→21:49)
[2020-07-20] MEDS: BUDESONIDE/FORMOTEROL 160-4.5 INHALER 6 GM INH SCH ×2 (11:58→21:49)
[2020-07-20] MEDS ORDERED: HEPARIN DRIP 25,000 UNITS/500 ML PREMIX IV SCH (13:00)
[2020-07-20] MEDS: ALBUTEROL/IPRATROPIUM 3 ML NEB RESP TX SCH ×3 (14:28→23:00)
[2020-07-20] MEDS: Ergocalciferol (Vitamin D2) 50 mcg (2,000 unit) Tablet PO SCH (14:54)
[2020-07-20] MEDS: ATORVASTATIN 40 MG TABLET PO SCH (21:44)
[2020-07-20] MEDS: ROSUVASTATIN 10 MG TABLET PO SCH (21:48)
[2020-07-21] MEDS: CEFEPIME 1,000 MG in SODIUM CHLORIDE 0.9% 100 ML IV SCH ×2 (01:09→08:05)
[2020-07-21] MEDS: ALBUTEROL/IPRATROPIUM 3 ML NEB RESP TX SCH ×4 (03:15→20:08)
[2020-07-21] MEDS: methylPREDNISolone SOD SUC 40 MG/1 ML VIAL IV SCH ×3 (04:15→20:48)
[2020-07-21 06:24] LABS: Basophils % 0.1 % (0.0-0.8); Hematocrit 46.2 VOL% (42.0-52.0); Hemoglobin 15.2 GM/DL (14.0-18.0); Immature Granulocytes % 0.8 %; Immature Granulocytes Absolute 0.12 #; Lymphocytes # 0.5 10*3/uL (1.4-4.0); Lymphocytes % 3.2 % (21.2-54.2); Mean Corpuscular HGB Conc 32.9 GM/DL (32-36); Mean Corpuscular Volume 88.8 FL (87-102); Mean Platelet Volume 11.1 FL (9.6-12.0); Monocytes % 1.6 % (1.7-12.7); Neutrophils % 94.3 % (38.7-73.9); Platelet Count 221 T/CUMM (130-400); Red Cell Distribution Width 13.2 % (9.3-17.3); White Blood Count 14.2 T/CUMM (4-12)
[2020-07-21 06:48] LABS: Osmolality,Calculated 273.4 MOS/KG (273-304)
[2020-07-21 06:52] LABS: Troponin I 0.183 NG/ML (0.00-0.045)
[2020-07-21 06:53] LABS: Lymphocytes 1 % (20-55); Platelet Estimate Normal; Segmented Neutrophils 99 % (50-85); Total Cells Counted 100
[2020-07-21] MEDS: MULTIVITAMIN (CENTRUM) TABLET PO SCH (09:25)
[2020-07-21] MEDS: carvediloL 3.125 MG TABLET PO SCH ×2 (09:25→20:45)
[2020-07-21] MEDS: lisinopriL 2.5 MG TABLET PO SCH (09:26)
[2020-07-21] MEDS: ASCORBIC ACID 500 MG TABLET PO SCH ×2 (09:26→20:44)
[2020-07-21] MEDS: BUDESONIDE/FORMOTEROL 160-4.5 INHALER 6 GM INH SCH ×2 (09:26→20:55)
[2020-07-21] MEDS: FAMOTIDINE 20 MG TABLET PO SCH ×2 (09:26→20:45)
[2020-07-21] MEDS: Ergocalciferol (Vitamin D2) 50 mcg (2,000 unit) Tablet PO SCH (09:26)
[2020-07-21] MEDS: ZINC SULFATE 220 MG CAPSULE PO SCH (09:26)
[2020-07-21] MEDS: cefTRIAXone 1,000 MG in SYRINGE 1 EACH IV SCH (11:56)
[2020-07-21] MEDS ORDERED: FUROSEMIDE 40 MG/4 ML VIAL IV ONE (14:30)
[2020-07-21] MEDS: ENOXAPARIN 40 MG/0.4 ML SYRINGE SUBCUT SCH (17:46)
[2020-07-21] MEDS: ATORVASTATIN 40 MG TABLET PO SCH (20:44)
[2020-07-21] MEDS: ROSUVASTATIN 10 MG TABLET PO SCH (20:45)
[2020-07-22] MEDS: ALBUTEROL/IPRATROPIUM 3 ML NEB RESP TX SCH ×4 (00:34→19:35)
[2020-07-22 05:41] LABS: Basophils % 0.1 % (0.0-0.8); Hematocrit 44.9 VOL% (42.0-52.0); Immature Granulocytes % 0.6 %; Immature Granulocytes Absolute 0.07 #; Lymphocytes # 0.4 10*3/uL (1.4-4.0); Lymphocytes % 2.9 % (21.2-54.2); Mean Corpuscular HGB Conc 33.4 GM/DL (32-36); Mean Corpuscular Volume 87.7 FL (87-102); Mean Platelet Volume 11.1 FL (9.6-12.0); Monocytes % 1.9 % (1.7-12.7); Neutrophils % 94.5 % (38.7-73.9); Platelet Count 227 T/CUMM (130-400); Red Blood Count 5.12 MC/CUMM (3.8-5.5); Red Cell Distribution Width 13.1 % (9.3-17.3)
[2020-07-22 05:56] LABS: Calcium 8.6 MG/DL (8.5-10.1); Osmolality,Calculated 275.4 MOS/KG (273-304)
[2020-07-22 06:06] LABS: Lymphocytes 5 % (20-55); Segmented Neutrophils 94 % (50-85); Total Cells Counted 100
[2020-07-22 06:07] LABS: Hypochromasia 1+; Microcytosis 1+; Platelet Estimate Normal
[2020-07-22 06:15] LABS: Ferritin 451.4 ng/ml (26-388); Osmolality,Calculated 275.4 MOS/KG (273-304)
[2020-07-22] MEDS: lisinopriL 2.5 MG TABLET PO SCH (08:37)
[2020-07-22] MEDS: MULTIVITAMIN (CENTRUM) TABLET PO SCH (08:37)
[2020-07-22] MEDS: carvediloL 3.125 MG TABLET PO SCH ×3 (08:37→23:35)
[2020-07-22] MEDS: ZINC SULFATE 220 MG CAPSULE PO SCH (08:38)
[2020-07-22] MEDS: ASCORBIC ACID 500 MG TABLET PO SCH ×2 (08:38→21:13)
[2020-07-22] MEDS: FAMOTIDINE 20 MG TABLET PO SCH ×2 (08:38→21:12)
[2020-07-22] MEDS: methylPREDNISolone SOD SUC 40 MG/1 ML VIAL IV SCH ×2 (08:40→21:13)
[2020-07-22] MEDS: Ergocalciferol (Vitamin D2) 50 mcg (2,000 unit) Tablet PO SCH (08:42)
[2020-07-22] MEDS: BUDESONIDE/FORMOTEROL 160-4.5 INHALER 6 GM INH SCH ×2 (08:42→21:12)
[2020-07-22] MEDS: cefTRIAXone 1,000 MG in SYRINGE 1 EACH IV SCH (11:25)
[2020-07-22] MEDS: INSULIN LISPRO 100 UNIT/ML SUBCUT SCH ×3 (13:21→21:10)
[2020-07-22] MEDS: ENOXAPARIN 40 MG/0.4 ML SYRINGE SUBCUT SCH (17:09)
[2020-07-22] MEDS: ATORVASTATIN 40 MG TABLET PO SCH (21:12)
[2020-07-22] MEDS: ROSUVASTATIN 10 MG TABLET PO SCH (21:13)
[2020-07-23] MEDS: ALBUTEROL/IPRATROPIUM 3 ML NEB RESP TX SCH ×4 (00:35→19:24)
[2020-07-23 06:12] LABS: Hematocrit 45.1 VOL% (42.0-52.0); Hemoglobin 15.1 GM/DL (14.0-18.0); Immature Granulocytes % 0.7 %; Lymphocytes # 0.4 10*3/uL (1.4-4.0); Lymphocytes % 2.8 % (21.2-54.2); Mean Corpuscular HGB Conc 33.5 GM/DL (32-36); Mean Corpuscular Volume 87.1 FL (87-102); Mean Platelet Volume 10.7 FL (9.6-12.0); Monocytes % 2.6 % (1.7-12.7); Neutrophils % 93.9 % (38.7-73.9); Platelet Count 231 T/CUMM (130-400); Red Blood Count 5.18 MC/CUMM (3.8-5.5); Red Cell Distribution Width 13.1 % (9.3-17.3); White Blood Count 13.6 T/CUMM (4-12)
[2020-07-23 06:38] LABS: Hypochromasia 1+; Lymphocytes 4 % (20-55); Microcytosis 1+; Platelet Estimate Adequate; Segmented Neutrophils 94 % (50-85); Total Cells Counted 100
[2020-07-23 06:50] LABS: Calcium 8.9 MG/DL (8.5-10.1); Osmolality,Calculated 271.5 MOS/KG (273-304)
[2020-07-23] MEDS ORDERED: DEXTROSE 50% 25 GM/50 ML VIAL IV PRN (07:50)
[2020-07-23] MEDS: INSULIN LISPRO 100 UNIT/ML SUBCUT SCH ×4 (11:49→21:09)
[2020-07-23] MEDS: ASCORBIC ACID 500 MG TABLET PO SCH ×2 (12:26→21:09)
[2020-07-23] MEDS: methylPREDNISolone SOD SUC 40 MG/1 ML VIAL IV SCH ×2 (12:26→21:09)
[2020-07-23] MEDS: FAMOTIDINE 20 MG TABLET PO SCH ×2 (12:27→21:09)
[2020-07-23] MEDS: MULTIVITAMIN (CENTRUM) TABLET PO SCH (12:27)
[2020-07-23] MEDS: ZINC SULFATE 220 MG CAPSULE PO SCH (12:27)
[2020-07-23] MEDS: lisinopriL 2.5 MG TABLET PO SCH (12:27)
[2020-07-23] MEDS: BUDESONIDE/FORMOTEROL 160-4.5 INHALER 6 GM INH SCH ×2 (12:38→21:09)
[2020-07-23] MEDS: Ergocalciferol (Vitamin D2) 50 mcg (2,000 unit) Tablet PO SCH (12:38)
[2020-07-23] MEDS: cefTRIAXone 1,000 MG in SYRINGE 1 EACH IV SCH (13:03)
[2020-07-23] MEDS ORDERED: PHENOL 1.4% THROAT SPRAY 177 ML BOTTLE PO PRN (16:45)
[2020-07-23] MEDS: carvediloL 3.125 MG TABLET PO SCH (17:40)
[2020-07-23] MEDS: ATORVASTATIN 40 MG TABLET PO SCH (21:09)
[2020-07-24] MEDS: ALBUTEROL/IPRATROPIUM 3 ML NEB RESP TX SCH ×2 (01:00→07:33)
[2020-07-24 06:22] LABS: Basophils % 0.1 % (0.0-0.8); Eosinophils % 0.1 % (0.00-10.9); Immature Granulocytes % 0.7 %; Lymphocytes # 0.5 10*3/uL (1.4-4.0); Lymphocytes % 3.5 % (21.2-54.2); Mean Corpuscular HGB Conc 32.7 GM/DL (32-36); Mean Corpuscular Volume 89.3 FL (87-102); Mean Platelet Volume 10.9 FL (9.6-12.0); Monocytes % 3.4 % (1.7-12.7); Neutrophils % 92.2 % (38.7-73.9); Platelet Count 241 T/CUMM (130-400); Red Blood Count 5.49 MC/CUMM (3.8-5.5); Red Cell Distribution Width 13.2 % (9.3-17.3); White Blood Count 13.8 T/CUMM (4-12)
[2020-07-24 06:33] LABS: Osmolality,Calculated 276.4 MOS/KG (273-304)
[2020-07-24 06:44] LABS: Lymphocytes 2 % (20-55); Platelet Estimate Adequate; Segmented Neutrophils 97 % (50-85); Total Cells Counted 100
[2020-07-24] MEDS: INSULIN LISPRO 100 UNIT/ML SUBCUT SCH ×2 (08:03→17:23)
[2020-07-24] MEDS: ASCORBIC ACID 500 MG TABLET PO SCH (10:37)
[2020-07-24] MEDS: MULTIVITAMIN (CENTRUM) TABLET PO SCH (10:37)
[2020-07-24] MEDS: methylPREDNISolone SOD SUC 40 MG/1 ML VIAL IV SCH (10:37)
[2020-07-24] MEDS: ZINC SULFATE 220 MG CAPSULE PO SCH (10:38)
[2020-07-24] MEDS: FAMOTIDINE 20 MG TABLET PO SCH (10:38)
[2020-07-24] MEDS: BUDESONIDE/FORMOTEROL 160-4.5 INHALER 6 GM INH SCH (10:38)
[2020-07-24] MEDS: lisinopriL 2.5 MG TABLET PO SCH (10:38)
[2020-07-24] MEDS: Ergocalciferol (Vitamin D2) 50 mcg (2,000 unit) Tablet PO SCH (10:39)
[2020-07-24 12:36] VITALS: BP 116/64
[2020-07-24] MEDS: cefTRIAXone 1,000 MG in SYRINGE 1 EACH IV SCH (14:19)
== END 2020-07-24 14:54 | disposition home health service (06) | DRG 190 ==
LOC: N.ED 13:14 → SUATTDRO 17:47 → N.EDINP 17:47 → N.3E 18:45
PROVIDERS: ADMIT Internal Medicine Geriatric Medicine; ATTEND Internal Medicine

== ENCOUNTER 2020-08-15 08:00 | Inpatient (IN) ==
[2020-08-15 08:42] LABS: Basophils % 0.4 % (0.0-0.8); Eosinophils # 0.1 10*3/uL (0.0-0.87); Eosinophils % 1.4 % (0.00-10.9); Hematocrit 45.9 VOL% (42.0-52.0); Hemoglobin 15.1 GM/DL (14.0-18.0); Immature Granulocytes % 0.5 %; Immature Granulocytes Absolute 0.05 #; Lymphocytes # 0.6 10*3/uL (1.4-4.0); Lymphocytes % 6.2 % (21.2-54.2); Mean Corpuscular HGB Conc 32.9 GM/DL (32-36); Mean Corpuscular Volume 91.4 FL (87-102); Mean Platelet Volume 11.6 FL (9.6-12.0); Monocytes % 6.5 % (1.7-12.7); Platelet Count 201 T/CUMM (130-400); Red Blood Count 5.02 MC/CUMM (3.8-5.5); Red Cell Distribution Width 14.3 % (9.3-17.3); White Blood Count 9.2 T/CUMM (4-12)
[2020-08-15 09:08] LABS: Platelet Estimate Adequate
[2020-08-15] MEDS ORDERED: VANCOMYCIN INJ 1,250 MG in SODIUM CHLORIDE 0.9% 250 ML IV STA (09:08)
[2020-08-15] MEDS ORDERED: MEROPENEM 500 MG in SODIUM CHLORIDE 0.9% 100 ML IV ONE (09:08)
[2020-08-15 09:26] LABS: Albumin 2.8 G/DL (3.4-5.0); Bilirubin,Total 0.6 MG/DL (0.2-1.0); Osmolality,Calculated 280.4 MOS/KG (273-304); Potassium 4.3 MMOL/L (3.5-5.1); Total Protein 6.9 G/DL (6.4-8.3)
[2020-08-15] MEDS ORDERED: VANCOMYCIN 1,000 MG VIAL ONE (10:01)
[2020-08-15 11:39] LABS: Ferritin 358.3 ng/ml (26-388)
[2020-08-15] MEDS ORDERED: ACETAMINOPHEN 325 MG TABLET PO PRN (12:18)
[2020-08-15] MEDS ORDERED: GLUCAGON 1 MG VIAL IM PRN (12:18)
[2020-08-15] MEDS ORDERED: DEXTROSE 50% 25 GM/50 ML VIAL IV PRN (12:18)
[2020-08-15] MEDS ORDERED: ONDANSETRON 4 MG/2 ML VIAL IV PRN (12:18)
[2020-08-15] MEDS ORDERED: DOCUSATE SODIUM 100 MG CAPSULE PO PRN (12:18)
[2020-08-15] MEDS ORDERED: hydrALAZINE 20 MG/1 ML VIAL IV PRN (12:18)
[2020-08-15] MEDS ORDERED: ALBUTEROL/IPRATROPIUM 3 ML NEB RESP TX PRN (12:25)
[2020-08-15] MEDS ORDERED: ENOXAPARIN 40 MG/0.4 ML SYRINGE SUBCUT SCH (12:30)
[2020-08-15] MEDS ORDERED: cefTRIAXone 1,000 MG in SYRINGE 1 EACH IV SCH (12:30)
[2020-08-15] MEDS: methylPREDNISolone SOD SUC 125 MG/2 ML VIAL IV SCH ×3 (13:00→23:37)
[2020-08-15] MEDS: cefTRIAXone 1,000 MG in SYRINGE 1 EACH IV SCH (15:00)
[2020-08-15] MEDS: ALBUTEROL/IPRATROPIUM 3 ML NEB RESP TX SCH ×2 (15:01→19:43)
[2020-08-15] MEDS: AZITHROMYCIN INJ 500 MG in SODIUM CHLORIDE 0.9% 250 ML IV SCH (15:05)
[2020-08-15] MEDS ORDERED: FUROSEMIDE 40 MG/4 ML VIAL IV ONE (15:29)
[2020-08-15 17:46] LABS: ABG Base Excess 0.3 MMOL/L (-2.5-2.5); ABG HCO3 24.6 MMOL/L (20-26); ABG Oxygen Saturation 93.6 % (95-100); ABG PCO2 41.7 MM HG (35-48); ABG PH 7.392 (7.35-7.45); ABG PO2 75.2 MM HG (80-95); ABG TCO2 21.7 MMOL/L (23-27)
[2020-08-15 18:05] LABS: Calcium 8.6 MG/DL (8.5-10.1); Osmolality,Calculated 281.7 MOS/KG (273-304); Potassium 4.1 MMOL/L (3.5-5.1)
[2020-08-15] MEDS: INSULIN LISPRO 100 UNIT/ML SUBCUT SCH ×2 (18:27→20:48)
[2020-08-15] MEDS: BUDESONIDE/FORMOTEROL 160-4.5 INHALER 6 GM INH SCH (20:48)
[2020-08-16] MEDS: ALBUTEROL/IPRATROPIUM 3 ML NEB RESP TX SCH ×4 (00:42→20:41)
[2020-08-16 03:50] LABS: Basophils % 0.1 % (0.0-0.8); Hematocrit 44.1 VOL% (42.0-52.0); Hemoglobin 14.3 GM/DL (14.0-18.0); Immature Granulocytes % 0.7 %; Immature Granulocytes Absolute 0.05 #; Lymphocytes # 0.3 10*3/uL (1.4-4.0); Lymphocytes % 3.7 % (21.2-54.2); Mean Corpuscular HGB Conc 32.4 GM/DL (32-36); Mean Corpuscular Volume 90.7 FL (87-102); Mean Platelet Volume 11.1 FL (9.6-12.0); Monocytes % 1.2 % (1.7-12.7); Neutrophils % 94.3 % (38.7-73.9); Platelet Count 178 T/CUMM (130-400); Red Blood Count 4.86 MC/CUMM (3.8-5.5); Red Cell Distribution Width 13.8 % (9.3-17.3); White Blood Count 7.3 T/CUMM (4-12)
[2020-08-16 04:10] LABS: Hypochromasia 1+; Lymphocytes 5 % (20-55); Metamyelocytes 1 %; Segmented Neutrophils 92 % (50-85); Total Cells Counted 100
[2020-08-16 04:11] LABS: Microcytosis Slight; Ovalocytes Slight; Platelet Estimate Adequate
[2020-08-16 04:26] LABS: Albumin 2.6 G/DL (3.4-5.0); Bilirubin,Total 0.4 MG/DL (0.2-1.0); Calcium 8.9 MG/DL (8.5-10.1); Osmolality,Calculated 278.7 MOS/KG (273-304); Potassium 4.3 MMOL/L (3.5-5.1); Risk Ratio 2.8; Thyroid Stimulating Hormone 0.078 uIU/ml (0.358-3.74); Total Protein 6.5 G/DL (6.4-8.3); VLDL CHOLESTEROL 11.6 MG/DL
[2020-08-16] MEDS: methylPREDNISolone SOD SUC 125 MG/2 ML VIAL IV SCH ×3 (05:55→17:41)
[2020-08-16] MEDS: INSULIN LISPRO 100 UNIT/ML SUBCUT SCH ×4 (08:45→20:54)
[2020-08-16] MEDS: ENOXAPARIN 40 MG/0.4 ML SYRINGE SUBCUT SCH ×2 (08:51→20:54)
[2020-08-16] MEDS: ROSUVASTATIN 10 MG TABLET PO SCH (08:51)
[2020-08-16] MEDS: PANTOPRAZOLE 40 MG TABLET PO SCH (08:52)
[2020-08-16 09:06] LABS: ABG Base Excess 2.6 MMOL/L (-2.5-2.5); ABG HCO3 26.4 MMOL/L (20-26); ABG Oxygen Saturation 93.1 % (95-100); ABG PH 7.459 (7.35-7.45); ABG PO2 65.3 MM HG (80-95); ABG TCO2 27.5 MMOL/L (23-27)
[2020-08-16 09:16] LABS: Free T4 (Free Thyroxine) 1.11 NG/DL (0.76-1.46)
[2020-08-16] MEDS: BUDESONIDE/FORMOTEROL 160-4.5 INHALER 6 GM INH SCH ×2 (10:11→20:55)
[2020-08-16] MEDS: cefTRIAXone 1,000 MG in SYRINGE 1 EACH IV SCH (12:48)
[2020-08-16] MEDS ORDERED: FUROSEMIDE 40 MG/4 ML VIAL IV ONE (14:00)
[2020-08-16] MEDS: AZITHROMYCIN INJ 500 MG in SODIUM CHLORIDE 0.9% 250 ML IV SCH (14:19)
[2020-08-17] MEDS: methylPREDNISolone SOD SUC 125 MG/2 ML VIAL IV SCH ×5 (00:30→23:45)
[2020-08-17] MEDS: ALBUTEROL/IPRATROPIUM 3 ML NEB RESP TX SCH ×4 (02:17→18:29)
[2020-08-17 04:41] LABS: ABG Base Excess 4.9 MMOL/L (-2.5-2.5); ABG HCO3 28.8 MMOL/L (20-26); ABG Oxygen Saturation 94.2 % (95-100); ABG PCO2 45.1 MM HG (35-48); ABG PH 7.431 (7.35-7.45); ABG PO2 71.5 MM HG (80-95); ABG TCO2 25.9 MMOL/L (23-27)
[2020-08-17 06:04] LABS: Basophils % 0.1 % (0.0-0.8); Hematocrit 45.4 VOL% (42.0-52.0); Immature Granulocytes % 0.7 %; Immature Granulocytes Absolute 0.12 #; Lymphocytes # 0.3 10*3/uL (1.4-4.0); Mean Corpuscular HGB Conc 30.8 GM/DL (32-36); Mean Corpuscular Volume 93.4 FL (87-102); Monocytes % 1.8 % (1.7-12.7); Neutrophils % 95.4 % (38.7-73.9); Platelet Count 223 T/CUMM (130-400); Red Blood Count 4.86 MC/CUMM (3.8-5.5); Red Cell Distribution Width 13.9 % (9.3-17.3); White Blood Count 16.2 T/CUMM (4-12)
[2020-08-17 06:38] LABS: Lymphocytes 1 % (20-55); Platelet Estimate Normal; Segmented Neutrophils 99 % (50-85); Total Cells Counted 100
[2020-08-17 06:57] LABS: Calcium 9.3 MG/DL (8.5-10.1); Osmolality,Calculated 284.4 MOS/KG (273-304); Potassium 4.4 MMOL/L (3.5-5.1)
[2020-08-17] MEDS: INSULIN LISPRO 100 UNIT/ML SUBCUT SCH ×4 (08:53→21:51)
[2020-08-17] MEDS: PANTOPRAZOLE 40 MG TABLET PO SCH (08:55)
[2020-08-17] MEDS: ENOXAPARIN 40 MG/0.4 ML SYRINGE SUBCUT SCH ×2 (08:55→21:51)
[2020-08-17] MEDS: ROSUVASTATIN 10 MG TABLET PO SCH (08:55)
[2020-08-17] MEDS: BUDESONIDE/FORMOTEROL 160-4.5 INHALER 6 GM INH SCH ×2 (08:55→21:51)
[2020-08-17] MEDS: NEBIVOLOL 5 MG TABLET PO SCH (12:06)
[2020-08-17] MEDS: cefTRIAXone 1,000 MG in SYRINGE 1 EACH IV SCH (12:07)
[2020-08-17] MEDS: AZITHROMYCIN INJ 500 MG in SODIUM CHLORIDE 0.9% 250 ML IV SCH (12:08)
[2020-08-18] MEDS: ALBUTEROL/IPRATROPIUM 3 ML NEB RESP TX SCH ×4 (02:33→21:10)
[2020-08-18 04:14] LABS: ABG HCO3 30.1 MMOL/L (20-26); ABG Oxygen Saturation 88.7 % (95-100); ABG PH 7.433 (7.35-7.45); ABG PO2 58.8 MM HG (80-95); ABG TCO2 31.5 MMOL/L (23-27)
[2020-08-18 05:07] LABS: Basophils % 0.1 % (0.0-0.8); Hematocrit 44.6 VOL% (42.0-52.0); Immature Granulocytes % 0.7 %; Immature Granulocytes Absolute 0.11 #; Lymphocytes # 0.3 10*3/uL (1.4-4.0); Lymphocytes % 1.6 % (21.2-54.2); Mean Corpuscular HGB Conc 31.4 GM/DL (32-36); Mean Corpuscular Volume 93.1 FL (87-102); Mean Platelet Volume 11.2 FL (9.6-12.0); Monocytes % 1.6 % (1.7-12.7); Platelet Count 240 T/CUMM (130-400); Red Blood Count 4.79 MC/CUMM (3.8-5.5); Red Cell Distribution Width 13.8 % (9.3-17.3); White Blood Count 16.7 T/CUMM (4-12)
[2020-08-18 05:10] LABS: Calcium 8.8 MG/DL (8.5-10.1); Potassium 4.1 MMOL/L (3.5-5.1)
[2020-08-18 05:29] LABS: Band Neutrophils 2 % (0-10); Lymphocytes 1 % (20-55); Segmented Neutrophils 96 % (50-85); Total Cells Counted 100
[2020-08-18 05:30] LABS: Hypochromasia 1+; Microcytosis 1+; Platelet Estimate Normal
[2020-08-18] MEDS: methylPREDNISolone SOD SUC 125 MG/2 ML VIAL IV SCH ×3 (05:51→17:51)
[2020-08-18] MEDS: ROSUVASTATIN 10 MG TABLET PO SCH (08:27)
[2020-08-18] MEDS: NEBIVOLOL 5 MG TABLET PO SCH (08:28)
[2020-08-18] MEDS: PANTOPRAZOLE 40 MG TABLET PO SCH (08:29)
[2020-08-18] MEDS: ENOXAPARIN 40 MG/0.4 ML SYRINGE SUBCUT SCH (08:29)
[2020-08-18] MEDS: INSULIN LISPRO 100 UNIT/ML SUBCUT SCH ×3 (08:30→15:49)
[2020-08-18] MEDS ORDERED: MULTIVITAMIN (CENTRUM) TABLET PO SCH (09:00)
[2020-08-18] MEDS ORDERED: CHOLECALCIFEROL 1,000 UNIT TABLET PO SCH (09:00)
[2020-08-18] MEDS ORDERED: ASCORBIC ACID 500 MG TABLET PO SCH (09:00)
[2020-08-18] MEDS ORDERED: [UNRECOGNIZED DRUG - OTHER] PO SCH (09:00)
[2020-08-18] MEDS: BUDESONIDE/FORMOTEROL 160-4.5 INHALER 6 GM INH SCH (09:45)
[2020-08-18] MEDS: AZITHROMYCIN INJ 500 MG in SODIUM CHLORIDE 0.9% 250 ML IV SCH (13:57)
[2020-08-18] MEDS: cefTRIAXone 1,000 MG in SYRINGE 1 EACH IV SCH (16:09)
[2020-08-18 20:29] VITALS: BP 126/70
== END 2020-08-18 21:42 | DRG 190 ==
LOC: N.ED 08:00 → N.TELES 12:17 → SUATTDRO 12:18 → N.EDINP 12:18 → N.TELES 15:32
PROVIDERS: ADMIT Internal Medicine; ATTEND Internal Medicine

== ENCOUNTER 2020-09-23 08:39 | Inpatient (IN) ==
[2020-09-23 09:29] LABS: Basophils % 0.2 % (0.0-0.8); Eosinophils % 0.3 % (0.00-10.9); Hematocrit 42.8 VOL% (42.0-52.0); Hemoglobin 13.4 GM/DL (14.0-18.0); Immature Granulocytes % 1.7 %; Immature Granulocytes Absolute 0.16 #; Lymphocytes # 0.5 10*3/uL (1.4-4.0); Lymphocytes % 5.5 % (21.2-54.2); Mean Corpuscular HGB Conc 31.3 GM/DL (32-36); Mean Corpuscular Volume 95.5 FL (87-102); Mean Platelet Volume 10.4 FL (9.6-12.0); Monocytes % 6.2 % (1.7-12.7); Neutrophils % 86.1 % (38.7-73.9); Platelet Count 197 T/CUMM (130-400); Red Blood Count 4.48 MC/CUMM (3.8-5.5); Red Cell Distribution Width 15.6 % (9.3-17.3); White Blood Count 9.2 T/CUMM (4-12)
[2020-09-23 09:54] LABS: Albumin 2.7 G/DL (3.4-5.0); Bilirubin,Total 0.5 MG/DL (0.2-1.0); Calcium 8.5 MG/DL (8.5-10.1); Osmolality,Calculated 278.5 MOS/KG (273-304); Potassium 3.7 MMOL/L (3.5-5.1); Total Protein 5.7 G/DL (6.4-8.3)
[2020-09-23] MEDS ORDERED: AZITHROMYCIN 250 MG TABLET PO STA (11:25)
[2020-09-23] MEDS ORDERED: cefTRIAXone 1,000 MG in SODIUM CHLORIDE 0.9% 100 ML IV STA (11:25)
[2020-09-23] MEDS ORDERED: hydrALAZINE 20 MG/1 ML VIAL IV PRN (11:46)
[2020-09-23] MEDS ORDERED: DEXTROSE 50% 25 GM/50 ML VIAL IV PRN (11:46)
[2020-09-23] MEDS ORDERED: GLUCAGON 1 MG VIAL IM PRN (11:46)
[2020-09-23] MEDS ORDERED: MORPHINE 4 MG/1 ML VIAL IV PRN (11:46)
[2020-09-23] MEDS ORDERED: VANCOMYCIN INJ 1,000 MG in SODIUM CHLORIDE 0.9% 250 ML IV SCH (12:00)
[2020-09-23] MEDS ORDERED: MELATONIN 3 MG TABLET PO PRN (12:04)
[2020-09-23 12:28] LABS: ABG Base Excess 6.7 MMOL/L (-2.5-2.5); ABG HCO3 30.3 MMOL/L (20-26); ABG PH 7.415 (7.35-7.45); ABG PO2 58.6 MM HG (80-95); ABG TCO2 28.7 MMOL/L (23-27)
[2020-09-23] MEDS: methylPREDNISolone SOD SUC 40 MG/1 ML VIAL IV SCH (14:30)
[2020-09-23] MEDS: ENOXAPARIN 80 MG/0.8 ML SYRINGE SUBCUT SCH (15:10)
[2020-09-23] MEDS ORDERED: VANCOMYCIN INJ 1,250 MG in SODIUM CHLORIDE 0.9% 250 ML IV STA (15:29)
[2020-09-23] MEDS: CEFEPIME 1,000 MG in SODIUM CHLORIDE 0.9% 100 ML IV SCH ×2 (18:05→20:29)
[2020-09-23] MEDS: INSULIN LISPRO 100 UNIT/ML SUBCUT SCH ×2 (19:00→21:33)
[2020-09-24] MEDS: CEFEPIME 1,000 MG in SODIUM CHLORIDE 0.9% 100 ML IV SCH ×4 (01:11→17:58)
[2020-09-24] MEDS: methylPREDNISolone SOD SUC 40 MG/1 ML VIAL IV SCH ×2 (01:12→12:41)
[2020-09-24] MEDS: ENOXAPARIN 80 MG/0.8 ML SYRINGE SUBCUT SCH ×2 (01:12→12:36)
[2020-09-24] MEDS: VANCOMYCIN INJ 1,250 MG in SODIUM CHLORIDE 0.9% 250 ML IV SCH ×2 (04:22→16:41)
[2020-09-24 05:30] LABS: Basophils % 0.1 % (0.0-0.8); Hematocrit 39.9 VOL% (42.0-52.0); Hemoglobin 12.5 GM/DL (14.0-18.0); Immature Granulocytes % 1.4 %; Immature Granulocytes Absolute 0.14 #; Lymphocytes # 0.3 10*3/uL (1.4-4.0); Lymphocytes % 2.7 % (21.2-54.2); Mean Corpuscular HGB Conc 31.3 GM/DL (32-36); Mean Corpuscular Volume 95.9 FL (87-102); Mean Platelet Volume 10.9 FL (9.6-12.0); Monocytes % 1.2 % (1.7-12.7); Neutrophils % 94.6 % (38.7-73.9); Platelet Count 217 T/CUMM (130-400); Red Blood Count 4.16 MC/CUMM (3.8-5.5); Red Cell Distribution Width 15.4 % (9.3-17.3); White Blood Count 10.3 T/CUMM (4-12)
[2020-09-24] MEDS: ALBUTEROL/IPRATROPIUM 3 ML NEB RESP TX PRN ×2 (05:50→10:38)
[2020-09-24 06:01] LABS: Band Neutrophils 1 % (0-10); Lymphocytes 2 % (20-55); Segmented Neutrophils 94 % (50-85); Total Cells Counted 100
[2020-09-24 06:02] LABS: Hypochromasia 1+; Microcytosis 1+; Platelet Estimate Adequate
[2020-09-24 06:06] LABS: Albumin 2.4 G/DL (3.4-5.0); Potassium 4.3 MMOL/L (3.5-5.1); Total Protein 5.7 G/DL (6.4-8.3)
[2020-09-24] MEDS ORDERED: FUROSEMIDE 40 MG/4 ML VIAL IV ONE (09:03)
[2020-09-24] MEDS: INSULIN LISPRO 100 UNIT/ML SUBCUT SCH ×4 (10:08→21:05)
[2020-09-24] MEDS: ROSUVASTATIN 10 MG TABLET PO SCH (10:09)
[2020-09-25] MEDS: ENOXAPARIN 80 MG/0.8 ML SYRINGE SUBCUT SCH ×2 (00:09→13:31)
[2020-09-25] MEDS: methylPREDNISolone SOD SUC 40 MG/1 ML VIAL IV SCH ×3 (00:10→23:55)
[2020-09-25] MEDS: CEFEPIME 1,000 MG in SODIUM CHLORIDE 0.9% 100 ML IV SCH ×4 (00:15→18:48)
[2020-09-25] MEDS: VANCOMYCIN INJ 1,250 MG in SODIUM CHLORIDE 0.9% 250 ML IV SCH ×2 (05:19→17:01)
[2020-09-25 05:44] LABS: Basophils % 0.1 % (0.0-0.8); Hemoglobin 12.3 GM/DL (14.0-18.0); Immature Granulocytes % 1.2 %; Immature Granulocytes Absolute 0.14 #; Lymphocytes # 0.2 10*3/uL (1.4-4.0); Lymphocytes % 1.9 % (21.2-54.2); Mean Corpuscular HGB Conc 31.5 GM/DL (32-36); Mean Corpuscular Volume 94.4 FL (87-102); Mean Platelet Volume 10.9 FL (9.6-12.0); Monocytes % 2.4 % (1.7-12.7); Neutrophils % 94.4 % (38.7-73.9); Platelet Count 239 T/CUMM (130-400); Red Blood Count 4.13 MC/CUMM (3.8-5.5); Red Cell Distribution Width 15.4 % (9.3-17.3); White Blood Count 12.2 T/CUMM (4-12)
[2020-09-25 06:07] LABS: Anisocytosis 1+; Band Neutrophils 5 % (0-10); Lymphocytes 3 % (20-55); Macrocytosis 1+; Platelet Estimate Normal; Segmented Neutrophils 90 % (50-85); Total Cells Counted 100
[2020-09-25 06:09] LABS: Alanine Aminotransferase 28 U/L (16-61); Albumin 2.4 G/DL (3.4-5.0); Alkaline Phosphatase 56 U/L (45-117); Aspartate Amino Transferase 7 U/L (0-37); Bilirubin,Total < 0.39 MG/DL (0.2-1.0); Blood Urea Nitrogen 16 MG/DL (7-18); Calcium 9.1 MG/DL (8.5-10.1); Carbon Dioxide 34 MMOL/L (21-32); Estimated Glom Filtration Rate 122 ML/MIN; Glucose 149 MG/DL (74-106); Osmolality,Calculated 276.8 MOS/KG (273-304); Potassium 3.9 MMOL/L (3.5-5.1); Sodium 137 MMOL/L (136-145); Total Protein 5.8 G/DL (6.4-8.9)
[2020-09-25] MEDS: INSULIN LISPRO 100 UNIT/ML SUBCUT SCH ×4 (09:19→20:28)
[2020-09-25] MEDS: ROSUVASTATIN 10 MG TABLET PO SCH (09:20)
[2020-09-25 09:34] LABS: PT Patient Result 10.7 SECS (9.8-11.9)
[2020-09-25] MEDS: ALBUTEROL/IPRATROPIUM 3 ML NEB RESP TX PRN (11:00)
[2020-09-26] MEDS: ENOXAPARIN 80 MG/0.8 ML SYRINGE SUBCUT SCH ×3 (00:40→23:34)
[2020-09-26] MEDS: VANCOMYCIN INJ 1,250 MG in SODIUM CHLORIDE 0.9% 250 ML IV SCH ×2 (04:46→15:54)
[2020-09-26 06:05] LABS: Basophils % 0.2 % (0.0-0.8); Hematocrit 40.6 VOL% (42.0-52.0); Immature Granulocytes % 1.2 %; Immature Granulocytes Absolute 0.15 #; Lymphocytes # 0.2 10*3/uL (1.4-4.0); Lymphocytes % 1.8 % (21.2-54.2); Mean Corpuscular Volume 93.8 FL (87-102); Mean Platelet Volume 10.8 FL (9.6-12.0); Monocytes % 2.2 % (1.7-12.7); Neutrophils % 94.6 % (38.7-73.9); Platelet Count 217 T/CUMM (130-400); Red Blood Count 4.33 MC/CUMM (3.8-5.5); Red Cell Distribution Width 15.3 % (9.3-17.3); White Blood Count 12.5 T/CUMM (4-12)
[2020-09-26] MEDS: CEFEPIME 1,000 MG in SODIUM CHLORIDE 0.9% 100 ML IV SCH ×5 (06:24→23:32)
[2020-09-26 06:29] LABS: Albumin 2.5 G/DL (3.4-5.0); Bilirubin,Total 1.5 MG/DL (0.2-1.0); Calcium 8.8 MG/DL (8.5-10.1); Potassium 4.7 MMOL/L (3.5-5.1); Total Protein 5.8 G/DL (5.0-7.5)
[2020-09-26 06:56] LABS: Band Neutrophils 2 % (0-10); Lymphocytes 2 % (20-55); Segmented Neutrophils 95 % (50-85); Total Cells Counted 100
[2020-09-26 06:57] LABS: Hypochromasia 1+
[2020-09-26 06:58] LABS: Microcytosis 1+; Ovalocytes Slight
[2020-09-26 06:59] LABS: Platelet Estimate Normal
[2020-09-26] MEDS: ROSUVASTATIN 10 MG TABLET PO SCH (09:35)
[2020-09-26] MEDS: INSULIN LISPRO 100 UNIT/ML SUBCUT SCH ×5 (09:35→21:23)
[2020-09-26] MEDS: ALPRAZolam 0.25 MG TABLET PO SCH ×2 (09:36→21:23)
[2020-09-26] MEDS: methylPREDNISolone SOD SUC 40 MG/1 ML VIAL IV SCH ×2 (12:32→23:32)
[2020-09-27] MEDS: VANCOMYCIN INJ 1,250 MG in SODIUM CHLORIDE 0.9% 250 ML IV SCH (04:20)
[2020-09-27 05:21] LABS: Basophils % 0.1 % (0.0-0.8); Hematocrit 44.7 VOL% (42.0-52.0); Hemoglobin 13.8 GM/DL (14.0-18.0); Immature Granulocytes % 1.7 %; Immature Granulocytes Absolute 0.27 #; Lymphocytes # 0.4 10*3/uL (1.4-4.0); Lymphocytes % 2.6 % (21.2-54.2); Mean Corpuscular HGB Conc 30.9 GM/DL (32-36); Mean Corpuscular Volume 95.3 FL (87-102); Mean Platelet Volume 11.3 FL (9.6-12.0); Monocytes % 1.8 % (1.7-12.7); Neutrophils % 93.8 % (38.7-73.9); Platelet Count 249 T/CUMM (130-400); Red Blood Count 4.69 MC/CUMM (3.8-5.5); Red Cell Distribution Width 15.2 % (9.3-17.3); White Blood Count 15.6 T/CUMM (4-12)
[2020-09-27 05:42] LABS: Hypochromasia Slight; Lymphocytes 2 % (20-55); Microcytosis Slight; Platelet Estimate Adequate; Segmented Neutrophils 94 % (50-85); Total Cells Counted 100
[2020-09-27 05:45] LABS: Calcium 9.5 MG/DL (8.5-10.1); Osmolality,Calculated 276.8 MOS/KG (273-304); Potassium 4.6 MMOL/L (3.5-5.1)
[2020-09-27 05:46] LABS: Albumin 2.8 G/DL (3.4-5.0); Bilirubin,Total 0.5 MG/DL (0.2-1.0); Calcium 9.4 MG/DL (8.5-10.1); Osmolality,Calculated 276.8 MOS/KG (273-304); Potassium 4.6 MMOL/L (3.5-5.1); Total Protein 6.1 G/DL (5.0-7.5)
[2020-09-27] MEDS: CEFEPIME 1,000 MG in SODIUM CHLORIDE 0.9% 100 ML IV SCH ×4 (06:24→23:37)
[2020-09-27] MEDS: INSULIN LISPRO 100 UNIT/ML SUBCUT SCH ×4 (07:38→20:32)
[2020-09-27] MEDS ORDERED: FUROSEMIDE 40 MG/4 ML VIAL IV SCH (09:00)
[2020-09-27] MEDS: ALPRAZolam 0.25 MG TABLET PO SCH ×2 (09:24→20:31)
[2020-09-27] MEDS: ROSUVASTATIN 10 MG TABLET PO SCH (09:24)
[2020-09-27] MEDS: FUROSEMIDE 40 MG/4 ML VIAL IV SCH ×2 (09:25→20:32)
[2020-09-27] MEDS: ENOXAPARIN 80 MG/0.8 ML SYRINGE SUBCUT SCH ×2 (12:08→23:36)
[2020-09-27] MEDS: methylPREDNISolone SOD SUC 40 MG/1 ML VIAL IV SCH ×2 (12:08→23:36)
[2020-09-28 04:41] LABS: Basophils # 0.1 10*3/uL (0.0-0.2); Basophils % 0.4 % (0.0-0.8); Hematocrit 42.6 VOL% (42.0-52.0); Hemoglobin 13.8 GM/DL (14.0-18.0); Immature Granulocytes % 3.1 %; Immature Granulocytes Absolute 0.43 #; Lymphocytes # 0.3 10*3/uL (1.4-4.0); Lymphocytes % 2.3 % (21.2-54.2); Mean Corpuscular HGB Conc 32.4 GM/DL (32-36); Mean Corpuscular Volume 93.6 FL (87-102); Mean Platelet Volume 10.6 FL (9.6-12.0); Monocytes % 3.4 % (1.7-12.7); Neutrophils % 90.8 % (38.7-73.9); Platelet Count 229 T/CUMM (130-400); Red Blood Count 4.55 MC/CUMM (3.8-5.5); White Blood Count 14.1 T/CUMM (4-12)
[2020-09-28 05:03] LABS: Albumin 2.6 G/DL (3.4-5.0); Bilirubin,Total 0.5 MG/DL (0.2-1.0); Calcium 9.5 MG/DL (8.5-10.1); Hypochromasia Slight; Lymphocytes 4 % (20-55); Microcytosis Slight; Ovalocytes Slight; Platelet Estimate Adequate; Potassium 4.8 MMOL/L (3.5-5.1); Segmented Neutrophils 94 % (50-85); Total Cells Counted 100; Total Protein 6.2 G/DL (5.0-7.5)
[2020-09-28 05:22] LABS: Osmolality,Calculated 277.1 MOS/KG (273-304)
[2020-09-28] MEDS: CEFEPIME 1,000 MG in SODIUM CHLORIDE 0.9% 100 ML IV SCH ×4 (05:50→23:42)
[2020-09-28] MEDS: INSULIN LISPRO 100 UNIT/ML SUBCUT SCH ×4 (09:03→20:13)
[2020-09-28] MEDS: ALPRAZolam 0.25 MG TABLET PO SCH ×2 (09:03→20:13)
[2020-09-28] MEDS: ROSUVASTATIN 10 MG TABLET PO SCH (09:03)
[2020-09-28] MEDS: FUROSEMIDE 40 MG/4 ML VIAL IV SCH ×2 (09:03→20:13)
[2020-09-28] MEDS: ENOXAPARIN 80 MG/0.8 ML SYRINGE SUBCUT SCH ×2 (12:24→23:37)
[2020-09-28] MEDS: methylPREDNISolone SOD SUC 40 MG/1 ML VIAL IV SCH ×2 (12:25→23:41)
[2020-09-29] MEDS: CEFEPIME 1,000 MG in SODIUM CHLORIDE 0.9% 100 ML IV SCH ×3 (05:40→17:03)
[2020-09-29] MEDS: INSULIN LISPRO 100 UNIT/ML SUBCUT SCH ×4 (09:27→22:32)
[2020-09-29] MEDS: ROSUVASTATIN 10 MG TABLET PO SCH (09:29)
[2020-09-29] MEDS: ALPRAZolam 0.25 MG TABLET PO SCH ×2 (09:30→22:22)
[2020-09-29] MEDS: FUROSEMIDE 40 MG/4 ML VIAL IV SCH ×2 (09:30→22:19)
[2020-09-29] MEDS: methylPREDNISolone SOD SUC 40 MG/1 ML VIAL IV SCH (13:25)
[2020-09-29] MEDS: ENOXAPARIN 80 MG/0.8 ML SYRINGE SUBCUT SCH (13:25)
[2020-09-30] MEDS: methylPREDNISolone SOD SUC 40 MG/1 ML VIAL IV SCH (01:02)
[2020-09-30] MEDS: CEFEPIME 1,000 MG in SODIUM CHLORIDE 0.9% 100 ML IV SCH ×3 (01:06→12:08)
[2020-09-30] MEDS: ENOXAPARIN 80 MG/0.8 ML SYRINGE SUBCUT SCH ×2 (01:10→12:08)
[2020-09-30 05:16] LABS: Basophils # 0.1 10*3/uL (0.0-0.2); Basophils % 0.3 % (0.0-0.8); Hematocrit 41.1 VOL% (42.0-52.0); Hemoglobin 13.8 GM/DL (14.0-18.0); Immature Granulocytes % 3.1 %; Immature Granulocytes Absolute 0.49 #; Lymphocytes # 0.4 10*3/uL (1.4-4.0); Lymphocytes % 2.3 % (21.2-54.2); Mean Corpuscular HGB Conc 33.6 GM/DL (32-36); Mean Corpuscular Volume 90.5 FL (87-102); Mean Platelet Volume 10.8 FL (9.6-12.0); Monocytes % 3.3 % (1.7-12.7); Platelet Count 233 T/CUMM (130-400); Red Blood Count 4.54 MC/CUMM (3.8-5.5); Red Cell Distribution Width 14.8 % (9.3-17.3); White Blood Count 15.8 T/CUMM (4-12)
[2020-09-30 05:35] LABS: Osmolality,Calculated 276.2 MOS/KG (273-304); Potassium 3.9 MMOL/L (3.5-5.1)
[2020-09-30 05:42] LABS: Hypochromasia 1+; Lymphocytes 2 % (20-55); Microcytosis 1+; Segmented Neutrophils 96 % (50-85); Total Cells Counted 100
[2020-09-30 05:43] LABS: Platelet Estimate Normal
[2020-09-30] MEDS: ROSUVASTATIN 10 MG TABLET PO SCH (08:27)
[2020-09-30] MEDS: INSULIN LISPRO 100 UNIT/ML SUBCUT SCH ×2 (08:27→12:07)
[2020-09-30] MEDS: ALPRAZolam 0.25 MG TABLET PO SCH (08:27)
[2020-09-30] MEDS: FUROSEMIDE 40 MG/4 ML VIAL IV SCH (08:28)
[2020-09-30 12:19] VITALS: BP 108/62
[2020-10-01] MEDS ORDERED: FUROSEMIDE 40 MG TABLET PO SCH (09:00)
[2020-10-01] MEDS ORDERED: predniSONE 20 MG TABLET PO SCH (09:00)
== END 2020-09-30 15:06 | disposition home health service (06) | DRG 193 ==
LOC: N.ED 08:39 → N.TELES 14:39 → SUATTDRO 14:39 → N.TELES 18:27
PROVIDERS: ADMIT Internal Medicine; ATTEND Internal Medicine

== ENCOUNTER 2021-01-31 09:25 | Inpatient (IN) ==
[2021-01-31 10:40] LABS: Basophils % 0.5 % (0.0-0.8); Eosinophils # 0.1 10*3/uL (0.0-0.87); Eosinophils % 1.1 % (0.00-10.9); Hematocrit 39.6 VOL% (42.0-52.0); Hemoglobin 12.2 GM/DL (14.0-18.0); Immature Granulocytes % 0.8 %; Immature Granulocytes Absolute 0.07 #; Lymphocytes # 0.4 10*3/uL (1.4-4.0); Lymphocytes % 5.2 % (21.2-54.2); Mean Corpuscular HGB Conc 30.8 GM/DL (32-36); Mean Corpuscular Volume 89.2 FL (87-102); Mean Platelet Volume 10.8 FL (9.6-12.0); Monocytes % 5.9 % (1.7-12.7); Neutrophils % 86.5 % (38.7-73.9); Platelet Count 329 T/CUMM (130-400); Red Blood Count 4.44 MC/CUMM (3.8-5.5); Red Cell Distribution Width 13.6 % (9.3-17.3); White Blood Count 8.3 T/CUMM (4-12)
[2021-01-31 10:51] LABS: Alanine Aminotransferase 17 U/L (16-61); Albumin 2.8 G/DL (3.4-5.0); Alkaline Phosphatase 62 U/L (45-117); Aspartate Amino Transferase 13 U/L (0-37); Bilirubin,Total < 0.39 MG/DL (0.20-1.00); Blood Urea Nitrogen 10 MG/DL (7-18); Calcium 8.7 MG/DL (8.5-10.1); Carbon Dioxide 29 MMOL/L (21-32); Estimated Glom Filtration Rate 100 ML/MIN; Glucose 136 MG/DL (74-106); Osmolality,Calculated 279.4 MOS/KG (273-304); Potassium 3.6 MMOL/L (3.5-5.1); Sodium 140 MMOL/L (136-145); Total Protein 6.3 G/DL (6.4-8.2)
[2021-01-31] MEDS ORDERED: cefTRIAXone 1,000 MG in SODIUM CHLORIDE 0.9% 100 ML IV STA (13:07)
[2021-01-31] MEDS ORDERED: SODIUM CHLORIDE 0.9% 1,000 ML IV SCH (14:30)
[2021-01-31] MEDS: TRELEGY ELLIPTA INH SCH (14:50)
[2021-01-31] MEDS: cefTRIAXone 1,000 MG in SODIUM CHLORIDE 0.9% 100 ML IV SCH (14:50)
[2021-01-31] MEDS: predniSONE 5 MG TABLET PO SCH (15:54)
[2021-01-31] MEDS: ALBUTEROL/IPRATROPIUM 3 ML NEB RESP TX SCH (20:30)
[2021-01-31] MEDS: DOCUSATE SODIUM 100 MG CAPSULE PO PRN (21:15)
[2021-01-31] MEDS: BISACODYL 5 MG TABLET PO PRN (21:15)
[2021-01-31] MEDS: APIXABAN 5 MG TABLET PO SCH (21:15)
[2021-02-01] MEDS: ALBUTEROL/IPRATROPIUM 3 ML NEB RESP TX SCH ×4 (02:18→19:26)
[2021-02-01 06:51] LABS: Basophils % 0.4 % (0.0-0.8); Eosinophils # 0.1 10*3/uL (0.0-0.87); Hemoglobin 12.3 GM/DL (14.0-18.0); Immature Granulocytes % 0.4 %; Immature Granulocytes Absolute 0.03 #; Lymphocytes # 0.7 10*3/uL (1.4-4.0); Lymphocytes % 8.5 % (21.2-54.2); Mean Corpuscular HGB Conc 31.5 GM/DL (32-36); Mean Corpuscular Volume 88.2 FL (87-102); Mean Platelet Volume 10.3 FL (9.6-12.0); Neutrophils % 81.7 % (38.7-73.9); Platelet Count 307 T/CUMM (130-400); Red Blood Count 4.42 MC/CUMM (3.8-5.5); Red Cell Distribution Width 13.4 % (9.3-17.3); White Blood Count 8.4 T/CUMM (4-12)
[2021-02-01 07:11] LABS: Calcium 8.9 MG/DL (8.5-10.1); Potassium 3.8 MMOL/L (3.5-5.1)
[2021-02-01] MEDS: PANTOPRAZOLE 40 MG TABLET PO SCH (08:03)
[2021-02-01] MEDS: TRELEGY ELLIPTA INH SCH (08:07)
[2021-02-01] MEDS: APIXABAN 5 MG TABLET PO SCH ×2 (08:07→22:02)
[2021-02-01] MEDS: predniSONE 5 MG TABLET PO SCH (10:49)
[2021-02-01] MEDS: cefTRIAXone 1,000 MG in SODIUM CHLORIDE 0.9% 100 ML IV SCH (14:34)
[2021-02-01] MEDS: ALPRAZolam 0.25 MG TABLET PO PRN (22:02)
[2021-02-02] MEDS: ALBUTEROL/IPRATROPIUM 3 ML NEB RESP TX SCH ×4 (00:06→19:20)
[2021-02-02 04:56] LABS: Basophils % 0.3 % (0.0-0.8); Eosinophils # 0.1 10*3/uL (0.0-0.87); Eosinophils % 1.2 % (0.00-10.9); Hematocrit 38.6 VOL% (42.0-52.0); Hemoglobin 12.3 GM/DL (14.0-18.0); Immature Granulocytes % 0.3 %; Immature Granulocytes Absolute 0.03 #; Lymphocytes # 0.7 10*3/uL (1.4-4.0); Lymphocytes % 7.4 % (21.2-54.2); Mean Corpuscular HGB Conc 31.9 GM/DL (32-36); Mean Corpuscular Volume 86.7 FL (87-102); Mean Platelet Volume 10.4 FL (9.6-12.0); Neutrophils % 80.8 % (38.7-73.9); Platelet Count 308 T/CUMM (130-400); Red Blood Count 4.45 MC/CUMM (3.8-5.5); Red Cell Distribution Width 13.6 % (9.3-17.3)
[2021-02-02 05:22] LABS: Calcium 9.2 MG/DL (8.5-10.1); Osmolality,Calculated 272.7 MOS/KG (273-304); Potassium 4.6 MMOL/L (3.5-5.1)
[2021-02-02] MEDS: APIXABAN 5 MG TABLET PO SCH ×2 (09:09→09:35)
[2021-02-02] MEDS: BISACODYL 5 MG TABLET PO PRN (09:09)
[2021-02-02] MEDS: DOCUSATE SODIUM 100 MG CAPSULE PO PRN ×2 (09:09→20:51)
[2021-02-02] MEDS: predniSONE 5 MG TABLET PO SCH (09:09)
[2021-02-02] MEDS: PANTOPRAZOLE 40 MG TABLET PO SCH (09:09)
[2021-02-02] MEDS: TRELEGY ELLIPTA INH SCH (09:12)
[2021-02-02 11:29] LABS: INR 0.9; PT Patient Result 10.6 SECS (10.5-12.0)
[2021-02-02] MEDS: POLYETHYLENE GLYCOL POWDER 17 GM PACK PO SCH (12:54)
[2021-02-02] MEDS: NEBIVOLOL 5 MG TABLET PO SCH (12:54)
[2021-02-02] MEDS: cefTRIAXone 1,000 MG in SODIUM CHLORIDE 0.9% 100 ML IV SCH (14:05)
[2021-02-02] MEDS: LACTULOSE 20 GM/30 ML UDCUP PO PRN ×2 (16:08→20:51)
[2021-02-02] MEDS: ALPRAZolam 0.25 MG TABLET PO PRN (20:54)
[2021-02-03] MEDS: ALBUTEROL/IPRATROPIUM 3 ML NEB RESP TX SCH ×4 (00:09→19:16)
[2021-02-03] MEDS ORDERED: MORPHINE 2 MG/1 ML SYRINGE ONE (04:03)
[2021-02-03] MEDS: MORPHINE 2 MG/1 ML SYRINGE IV PRN (04:07)
[2021-02-03] MEDS: ONDANSETRON 4 MG/2 ML VIAL IV PRN (04:45)
[2021-02-03 05:34] LABS: Basophils % 0.2 % (0.0-0.8); Eosinophils # 0.1 10*3/uL (0.0-0.87); Eosinophils % 0.7 % (0.00-10.9); Hematocrit 41.8 VOL% (42.0-52.0); Hemoglobin 13.3 GM/DL (14.0-18.0); Immature Granulocytes % 0.6 %; Immature Granulocytes Absolute 0.05 #; Lymphocytes # 0.6 10*3/uL (1.4-4.0); Lymphocytes % 6.5 % (21.2-54.2); Mean Corpuscular HGB Conc 31.8 GM/DL (32-36); Mean Corpuscular Volume 87.1 FL (87-102); Mean Platelet Volume 10.8 FL (9.6-12.0); Monocytes % 8.1 % (1.7-12.7); Neutrophils % 83.9 % (38.7-73.9); Platelet Count 367 T/CUMM (130-400); Red Cell Distribution Width 13.6 % (9.3-17.3); White Blood Count 9.1 T/CUMM (4-12)
[2021-02-03 06:03] LABS: Calcium 9.3 MG/DL (8.5-10.1); Osmolality,Calculated 270.8 MOS/KG (273-304); Potassium 3.8 MMOL/L (3.5-5.1)
[2021-02-03] MEDS: predniSONE 5 MG TABLET PO SCH (10:00)
[2021-02-03] MEDS: NEBIVOLOL 5 MG TABLET PO SCH (10:00)
[2021-02-03] MEDS: PANTOPRAZOLE 40 MG TABLET PO SCH (10:23)
[2021-02-03] MEDS: TRELEGY ELLIPTA INH SCH (10:24)
[2021-02-03] MEDS: POLYETHYLENE GLYCOL POWDER 17 GM PACK PO SCH (10:24)
[2021-02-03] MEDS ORDERED: DIAZEPAM 5 MG TABLET PO ONE (12:25)
[2021-02-03] MEDS: cefTRIAXone 1,000 MG in SODIUM CHLORIDE 0.9% 100 ML IV SCH (15:04)
[2021-02-03] MEDS: ALPRAZolam 0.25 MG TABLET PO PRN (21:19)
[2021-02-04] MEDS: ALBUTEROL/IPRATROPIUM 3 ML NEB RESP TX SCH ×4 (00:10→20:00)
[2021-02-04] MEDS: POLYETHYLENE GLYCOL POWDER 17 GM PACK PO SCH (08:54)
[2021-02-04] MEDS: predniSONE 5 MG TABLET PO SCH (08:54)
[2021-02-04] MEDS: NEBIVOLOL 5 MG TABLET PO SCH (08:54)
[2021-02-04] MEDS: PANTOPRAZOLE 40 MG TABLET PO SCH (08:54)
[2021-02-04] MEDS: TRELEGY ELLIPTA INH SCH (08:55)
[2021-02-04 10:26] LABS: Cancer Antigen 19-9 23.52 U/ML (0-35); Carcinoembryonic Antigen 6.6 NG/ML (0.0-5.0)
[2021-02-04] MEDS: ONDANSETRON 4 MG/2 ML VIAL IV PRN ×2 (10:30→21:24)
[2021-02-04] MEDS: cefTRIAXone 1,000 MG in SODIUM CHLORIDE 0.9% 100 ML IV SCH (14:35)
[2021-02-04] MEDS: ALPRAZolam 0.25 MG TABLET PO PRN (21:22)
[2021-02-05] MEDS: ALBUTEROL/IPRATROPIUM 3 ML NEB RESP TX SCH ×4 (00:12→18:25)
[2021-02-05] MEDS: ONDANSETRON 4 MG/2 ML VIAL IV PRN (00:31)
[2021-02-05] MEDS: predniSONE 5 MG TABLET PO SCH (08:39)
[2021-02-05] MEDS: NEBIVOLOL 5 MG TABLET PO SCH (08:39)
[2021-02-05] MEDS: PANTOPRAZOLE 40 MG TABLET PO SCH (08:39)
[2021-02-05] MEDS: POLYETHYLENE GLYCOL POWDER 17 GM PACK PO SCH (08:39)
[2021-02-05] MEDS: MORPHINE 2 MG/1 ML SYRINGE IV PRN ×2 (08:41→21:59)
[2021-02-05] MEDS: TRELEGY ELLIPTA INH SCH (09:06)
[2021-02-05] MEDS: cefTRIAXone 1,000 MG in SODIUM CHLORIDE 0.9% 100 ML IV SCH (15:15)
[2021-02-05 17:06] LABS: Alanine Aminotransferase 18 U/L (16-61); Alkaline Phosphatase 65 U/L (45-117); Aspartate Amino Transferase 11 U/L (0-37); Bilirubin,Direct < 0.100 MG/DL (0.0-0.20); Bilirubin,Indirect 1.2 MG/DL (0.0-1.0)
[2021-02-06] MEDS: ALBUTEROL/IPRATROPIUM 3 ML NEB RESP TX SCH ×2 (00:05→07:25)
[2021-02-06] MEDS: ALPRAZolam 0.25 MG TABLET PO PRN (00:14)
[2021-02-06 04:29] LABS: Basophils % 0.3 % (0.0-0.8); Eosinophils # 0.1 10*3/uL (0.0-0.87); Eosinophils % 1.2 % (0.00-10.9); Hematocrit 40.7 VOL% (42.0-52.0); Hemoglobin 12.4 GM/DL (14.0-18.0); Immature Granulocytes % 1.5 %; Immature Granulocytes Absolute 0.14 #; Lymphocytes # 0.6 10*3/uL (1.4-4.0); Lymphocytes % 6.9 % (21.2-54.2); Mean Corpuscular HGB Conc 30.5 GM/DL (32-36); Mean Corpuscular Volume 89.8 FL (87-102); Mean Platelet Volume 10.5 FL (9.6-12.0); Monocytes % 9.4 % (1.7-12.7); Neutrophils % 80.7 % (38.7-73.9); Platelet Count 345 T/CUMM (130-400); Red Blood Count 4.53 MC/CUMM (3.8-5.5); Red Cell Distribution Width 13.5 % (9.3-17.3); White Blood Count 9.3 T/CUMM (4-12)
[2021-02-06 05:04] LABS: Albumin 3.1 G/DL (3.4-5.0); Bilirubin,Total 0.4 MG/DL (0.20-1.00); Calcium 9.1 MG/DL (8.5-10.1); Osmolality,Calculated 270.8 MOS/KG (273-304); Potassium 4.1 MMOL/L (3.5-5.1); Total Protein 6.8 G/DL (6.4-8.2)
[2021-02-06] MEDS: PANTOPRAZOLE 40 MG TABLET PO SCH (10:17)
[2021-02-06] MEDS: POLYETHYLENE GLYCOL POWDER 17 GM PACK PO SCH (10:17)
[2021-02-06] MEDS: TRELEGY ELLIPTA INH SCH (10:17)
[2021-02-06] MEDS: predniSONE 5 MG TABLET PO SCH (10:17)
[2021-02-06] MEDS: MORPHINE 2 MG/1 ML SYRINGE IV PRN (10:17)
[2021-02-06] MEDS: NEBIVOLOL 5 MG TABLET PO SCH (10:17)
[2021-02-06 12:06] VITALS: BP 103/66
== END 2021-02-06 12:30 | disposition home or self-care (01) | DRG 180 ==
LOC: N.TELES 09:25 → N.ED 09:25 → SUATTDRO 13:58 → N.TELES 14:33
PROVIDERS: ADMIT Nurse Practitioner Family; ATTEND Hospitalist